=== PATIENT | male | born 1965 | race Caucasian/White ===

== ENCOUNTER → 2017-11-16 14:58 | Outpatient (CLI) | payer SELFPAY ==
--- NOTE | 2017-11-16 15:07 | XR_ITS ---
XR hip LT 2-3V w/pelvis Ordering Physician: Jolie Nguyen Patient Age: 52 years: Male HISTORY: ITS.REASON: LT HIP PAIN Left hip pain 2 months since accident TECHNIQUE: AP and frog-leg view left hip along with AP pelvis COMPARISON :CT abdomen pelvis from 09/12/2017 FINDINGS The left femoral head and neck are intact. The left hip joint spaces well-maintained. Subtrochanteric region unremarkable. There are some small subtle cystic areas at the beneath the lateral rim of the left acetabulum. These are seen on the previous CT and lack reflect some very early degenerative cyst, subchondral cystic changes.. Again the joint space appears to remain fairly well-maintained however. The pelvis appears intact. Superior and inferior pubis intact iliac bone and SI joints intact. Right hip intact with small benign herniation pit. At the right subcapital region. Insignificant IMPRESSION: No fracture. No acute findings. . Hip joint spaces well-maintained bilaterally. Only noteSmall subchondral cystic area beneath the rim of left acetabulum noted.-May reflect some very early degenerative changes left hip
== END ==
PROVIDERS: PCP Nurse Practitioner Family; Visit Provider Nurse Practitioner Family
DX: M25.552 Pain in left hip (principal)
CPT/HCPCS: 73502

== ENCOUNTER → 2017-12-24 14:05 | Outpatient (CLI) | payer SELFPAY ==
--- NOTE | 2017-12-24 14:08 | MR_ITS ---
MR lumbar spine wo con, MR 3-d myelogram/MRCP HISTORY: Bilateral LBP. Tractor Bucket hit back. [id number]. Numbness and tingling in RT leg. Bilateral Leg pain ITS.REASON: LOW BACK PAIN ORDERING PHYSICIAN: Jolie Nguyen PATIENT AGE: 52 years Comparison: None TECHNIQUE: Standard multiplanar multiecho sequences are performed without contrast. 3-D MIP and myelographic images are also rendered and reviewed FINDINGS: There is normal alignment. The spinal cord ends at the L1 level. L1-L2, L2-L3, and L3-L4 have an unremarkable appearance. L4-L5: Concentric bulging disc with some minimal right paracentral disc protrusion. There is mild facet and ligamentum flavum hypertrophy with bilateral lateral recess and foraminal narrowing. The disc is abutting the anteromedial aspect of the L5 nerve roots on both sides slightly greater on the right. L5-S1: Degenerative disc disease which is moderate to severe with bulging disc. There is minimal focal right and left paracentral/foraminal disc protrusion versus small disc osteophyte complex abutting the S1 nerve roots on both sides with moderate severe bilateral foraminal narrowing. There is facet and ligamentum flavum hypertrophy contributing to these findings. No canal stenosis. No extruded herniated disc. There is minimal levocurvature of the lumbar spine. IMPRESSION: 1. Concentric bulging disc at L4-L5 with some minimal right paracentral disc protrusion. There is mild facet and ligamentum flavum hypertrophy with bilateral lateral recess and foraminal narrowing. The disc is abutting the anteromedial aspect of the L5 nerve roots on both sides slightly greater on the right. 2. Moderate to severe Degenerative disc disease at L5-S1 with bulging disc. There is minimal focal right and left paracentral/foraminal disc protrusion versus small disc osteophyte complex abutting the S1 nerve roots on both sides with moderate severe bilateral foraminal narrowing. There is facet and ligamentum flavum hypertrophy contributing to these findings
== END ==
PROVIDERS: Family Provider Internal Medicine; PCP Nurse Practitioner Family; Visit Provider Nurse Practitioner Family
DX: M54.5 Low back pain (principal)
CPT/HCPCS: 72148; 76376

== ENCOUNTER → 2018-07-06 11:17 | Outpatient (CLI) | payer OTHER, SELFPAY ==
--- NOTE | 2018-07-06 11:31 | XR_ITS ---
XR knee RT 3V HISTORY: ITS.REASON: RT KNEE PAIN ORDERING PHYSICIAN: Jolie Nguyen PATIENT AGE: 53 years COMPARISON: None FINDINGS: No fracture or dislocation. No lytic or blastic change. Normal mineralization. No significant arthritic changes evident. No other significant findings IMPRESSION: Negative Knee
--- NOTE | 2018-07-06 11:31 | XR_ITS ---
XR hip RT 2-3V w/pelvis HISTORY: ITS.REASON: RT HIP PAIN ORDERING PHYSICIAN: Jolie Nguyen PATIENT AGE: 53 years COMPARISON: None FINDINGS: No fracture or dislocation is evident. No significant degenerative change. No lytic or blastic change. Unremarkable soft tissues IMPRESSION: Negative hip
== END ==
PROVIDERS: PCP Nurse Practitioner Family; Visit Provider Nurse Practitioner Family
DX: M25.551 Pain in right hip (principal); M25.561 Pain in right knee
CPT/HCPCS: 73502; 73562

== ENCOUNTER → 2018-11-19 08:52 | Outpatient (CLI) | payer OTHER, SELFPAY ==
--- NOTE | 2018-11-19 08:53 | NVE_ITS ---
Venous Exam Indications: 729.81 Swelling of limb. IMPRESSIONS 1. There is no evidence of significant Reflux. 2. No evidence of deep or superficial vein thrombosis involving the right lower extremity Right lower extremity venous duplex evaluation. Doppler flow study including spectral analysis, color and wilkins scale imaging. Location: Vascular laboratory. Patient status: Outpatient. Tables: Venous flow and imaging: + +-------+ + Location Overall Flow properties + +-------+ + Right common femoral Patent Normal phasicity; spontaneous; normal augmentation; compressible + +-------+ + Right saphenofemoral junction Patent Compressible + +-------+ + Right profunda femoral Patent Compressible + +-------+ + Right femoral Patent Normal phasicity; spontaneous; normal augmentation; compressible + +-------+ + Right greater saphenous Patent Normal phasicity; spontaneous; normal augmentation; compressible + +-------+ + Right popliteal Patent Normal phasicity; spontaneous; normal augmentation; compressible + +-------+ + Right posterior tibial Patent Compressible + +-------+ + Right peroneal Patent Compressible + +-------+ + Right gastrocnemius Patent Compressible + +-------+ + Right soleal Patent Compressible + +-------+ + (Report amended ) Electronically signed by: Marquis Zavala [id number]
== END ==
PROVIDERS: PCP Emergency Medicine; Visit Provider Physician Assistant
DX: M79.89 Other specified soft tissue disorders (principal)
CPT/HCPCS: 93971

== ENCOUNTER → 2018-11-30 12:45 | Outpatient (CLI) | payer OTHER, SELFPAY ==
--- NOTE | 2018-11-30 12:47 | MR_ITS ---
MR lumbar spine wo con, MR 3-d myelogram/MRCP HISTORY: PT states low back pain, bilateral leg pain, numbness and tingling. RT leg burning and swelling. PT also states mid back pain. Bilateral hip and groin pain. Prior discectomy in 2003. ITS.REASON: radiculopathy lumbar pain ORDERING PHYSICIAN: EPIFANIO Russell PATIENT AGE: 53 years Comparison: 12-24-17. TECHNIQUE: Standard multiplanar multiecho sequences are performed without contrast. 3-D MIP and myelographic images are also rendered and reviewed FINDINGS: There is normal alignment. The spinal cord ends at the L1 level. Mild degenerative changes at T11-T12. T12-L1, L1-L2, L2-L3, and L3-L4 have an unremarkable appearance. L4-5: There is mild bulging disc with a small central disc protrusion very slightly eccentric toward the right. The bulging disc abuts the anteromedial aspect of both L5 nerve roots. There is mild facet and ligamentum flavum hypertrophy at this level. Not significant change. L5-S1: Degenerative disc disease with bulging disc/disc osteophyte complex along with facet and ligamentum flavum hypertrophy. Minimal focal right paracentral and left paracentral/foraminal disc protrusion versus small disc osteophyte complex once again noted is not appear significantly changed. There is moderate to severe bilateral foraminal narrowing and moderate to severe bilateral lateral recess narrowing. There are type II endplate changes at this level. IMPRESSION: 1. Overall no significant change compared to the previous exam. 2. There is mild bulging disc at L4-5 with a small central disc protrusion very slightly eccentric toward the right. The bulging disc abuts the anteromedial aspect of both L5 nerve roots. There is mild facet and ligamentum flavum hypertrophy at this level. Not significant change.. 3. Degenerative disc disease at L5-S1 with bulging disc/disc osteophyte complex along with facet and ligamentum flavum hypertrophy. Minimal focal right paracentral and left paracentral/foraminal disc protrusion versus small disc osteophyte complex once again noted and does not appear significantly changed. There is moderate to severe bilateral foraminal narrowing and moderate to severe bilateral lateral recess narrowing.
== END ==
PROVIDERS: PCP Physician Assistant; Visit Provider Physician Assistant
DX: M51.16 Intervertebral disc disorders with radiculopathy, lumbar region (principal); M54.16 Radiculopathy, lumbar region
CPT/HCPCS: 72148; 76376

== ENCOUNTER 2019-01-19 09:00 | Outpatient (RCR) | payer OTHER, SELFPAY | END 2019-02-02 11:42 | disposition home or self-care (01) | LOC: PT.CARL 09:00 | PROVIDERS: Visit Provider Neurological Surgery | DX: M25.551 Pain in right hip (principal) | CPT/HCPCS: 97010; 97014; 97110; 97140; 97163; G0283 ==

== ENCOUNTER → 2019-02-03 12:49 | Outpatient (CLI) | payer OTHER, SELFPAY ==
--- NOTE | 2019-02-03 12:52 | MR_ITS ---
PROCEDURE: MR HIP RT WO CON CLINICAL INDICATION: RIGHT HIP PAIN Right hip pain, previous injury with pain and swelling and weakness COMPARISON: HIPCMRT XR hip RT 2-3V w/pelvis from 07/06/2018 TECHNIQUE: Routine multiplanar multi echo sequences are performed without gadolinium enhancement. FINDINGS: There is a small cyst within the junction of the femoral head and neck anteriorly on the right. This measures 8 mm. There is no evidence of avascular necrosis of the femoral head. No evidence of fracture of the femur. There is focal increased T2 signal involving the acetabular roof medially. On the T1 weighted images this has a somewhat linear pattern and is consistent with a subacute fracture. This may be below limits of resolution on the plain film but may be confirmed with CT for better bony detail. No soft tissue mass, muscular tear or abnormal fluid collections are evident. IMPRESSION: Abnormal signal intensity involving the roof of the acetabulum medially suspicious for subacute nondisplaced fracture. Consider CT for confirmation. Dictated by: Marquis Zavala MD 02/05/2019 12:39 Signed by: <Electronically signed by Marquis Zavala MD in [place]> 02/05/2019 12:39
== END ==
PROVIDERS: PCP Physician Assistant; Visit Provider Physician Assistant
DX: M25.551 Pain in right hip (principal)
CPT/HCPCS: 73721

== ENCOUNTER 2019-05-06 09:46 | Observation (INO) ==
--- NOTE | 2019-05-06 09:53 | Emergency Department Note ---
ED Disposition Clinical Impression: Syncope and collapse Fever Qualifiers: Fever type: unspecified Qualified Code(s): R50.9 - Fever, unspecified Disposition: Home, Self-Care Condition on Discharge: Fair Instructions: DI for Syncope in Adults (Fainting) Additional Instructions: Call Dr. Jacinto if temperature greater than 101.5. Tylenol as needed for headache and fever. See Dr. Jacinto in his office next week. Return to the emergency room if fainting recurs. Referrals: Provider,Referral, [Referring] - - Critical Care Critical Care Time: No Attestation: On , the high probability of a clinically significant, sudden or life threatening deterioration of the following system(s) required my full and direct attention, intervention and personal management. The time I documented below is in addition to time spent performing reported procedures but includes the foll owing listed in this critical care notation. Medical Decision Making - Twin Inquiry Pt receiving controlled substance: No Vital Signs: 05/06/19 09:45 05/06/19 11:06 05/06/19 11:48 Temperature 99.6 F 99.8 F H Temperature Source Oral Oral Pulse Rate [Right Radial] 85 76 73 Respiratory Rate 18 Blood Pressure [Right Arm] 146/77 H 132/68 103/44 L Blood Pressure Mean [Right Arm] 100 89 63 Blood Pressure Source [Right Arm] Automatic Cuff Automatic Cuff Automatic Cuff Blood Pressure Position [Right Arm] Sitting Sitting Sitting 02 Sat by Pulse Oximetry 98 97 94 L Oxygen Delivery Method Room Air Room Air Room Air 05/06/19 12:14 05/06/19 12:51 05/06/19 13:36 Temperature Temperature Source Pulse Rate [Right Radial] 79 78 77 Respiratory Rate 18 18 Blood Pressure [Right Arm] 115/59 L 143/73 H 118/77 Blood Pressure Mean [Right Arm] 77 96 90 Blood Pressure Source [Right Arm] Automatic Cuff Automatic Cuff Automatic Cuff Blood Pressure Position [Right Arm] Supine Supine Supine 02 Sat by Pulse Oximetry 96 98 96 Oxygen Delivery Method Room Air Room Air Room Air - Lab Data Lab Results 05/06/19 09:55: WBC 14.0 H, RBC 4.12 L, Hgb 13.3 L, Hct 39.9 L, MCV 96.8 H, MCH 32.3 H, MCHC 33.3, RDW 13.5, Plt Count 259, MPV 8.0, Neut % (Auto) 75.6, Lymph % (Auto) 14.0, [place] % (Auto) 8.4, Eos % (Auto) 1.7, Baso % (Auto) 0.3, Neut # (Auto) 10.6 H, Lymph # (Auto) 2.0, [place] # (Auto) 1.2 H, Eos # (Auto) 0.2, Baso # (Auto) 0.0 05/06/19 09:55: Sodium 134 L, Potassium 3.8, Chloride 101, Carbon Dioxide 27, Anion Gap 9.8, BUN 18, Creatinine 1.05, Estimated Creat Clear 83, Estimated GFR 73, Est GFR ( Amer) 88, Glucose 122 H, Calcium 8.6, Total Bilirubin 0.5, AST 22, ALT 22, Alkaline Phosphatase 84, Troponin I < 0.02, Total Protein 6.8, Albumin 3.4, Globulin 3.4 H, Albumin/Globulin Ratio 1.0 L 05/06/19 09:55: Lactate 1.0 05/06/19 10:16: Urine Color Yellow, Urine Appearance Clear, Urine pH 6.0, Ur Specific [place] 1.010, Urine Protein Negative, Urine Glucose (UA) Negative, Urine Ketones Negative, Urine Blood 1+, Urine Nitrate Negative, Urine Bilirubin Negative, Urine Urobilinogen 0.2, Ur Leukocyte Esterase Negative, Urine RBC 3-5, Urine WBC Occasional, Ur Squamous Epith Cells Occasional, Urine Bacteria Trace 05/06/19 10:16: Influenza Type A Ag Negative, Influenza Type B Ag Negative 05/06/19 13:00: Troponin I < 0.02 Result diagrams: 05/06/19 09:55 05/06/19 09:55 Orders (Tests/Meds): ED MEDICATIONS Discontinued Medications Generic Name Dose Route Start Last Admin Trade Name Freq PRN Reason Stop Dose Admin Acetaminophen 650 mg 05/06/19 10:03 05/06/19 10:21 Acetaminophen 325mg Tab PO 05/06/19 10:04 650 mg ONCE ONE Administration ORDERS Category Date Time Status CRP [C-Reactive Protein] Stat Lab 05/06/19 09:55 Received Erythrocyte Sedimentation Rate Stat Lab 05/06/19 09:55 Received Troponin I Q3H Lab 05/06/19 16:00 Ordered Blood Culture Stat Micro 05/06/19 09:55 Received - Radiology Data #1 Image(s): Chest Image Reviewed: Yes I reviewed the patient's radiology image Preliminary Findings: Normal/NAD - US Data US Images: Lower Extremity (bilat) Findings Narrative: As per [facility] procedure, doppler report received from vascular surgeon: Negative - ECG Data Tracing #1 EKG interpreted by Erasmo Wall MD: Rhythm: sinus Rate: 75 [place]: normal Ectopy: none Conduction: normal ST Segment Changes: none T Wave Changes: none Q Waves: none No evidence of acute ischemia or injury Baseline artifact and wander present, but I consider the EKG adequate for accurate interpretation. - Physician Consults Physician Consulted: Orville Time: 12:00 Reason -: Surgical Eval/Care Comment/Response: Requests bilateral Dopplers of legs to rule out DVT. If negative, discharge home to follow-up in their clinic next week. Call him if temperature greater than 101.5. Additional Consult: Kris Time: 14:10 Reason -: Admission Comment/Response: Agrees to admit the patient to the hospital. We discussed the patient's clinical information, including history, exam, laboratory and radiology results and ED course. Per hospital procedure, I will write temporary bridge inpatient orders on the patient. Specific orders requested by the admitting physician: No antibiotics. IV fluids. Telemetry. - Reevaluation(s) Time: 12:11 Reevaluation #1: Patient states currently just feels weak. Says he has no headache at present. No new complaints. Time: 13:45 Reevaluation #3: Dopplers of legs are negative. Patient however, states that he "just does not feel right". He feels very weak. He keeps nodding off. He has some achiness in the area of his iliac crests bilaterally. Denies any other significant pain. Both he and his daughter did not feel comfortable with him going home. Call will be placed to Dr. Jacinto and I will attempt to get him transferred to [facility]. Medical Decision Narrative: Attempted to transfer to [facility]. They are full and have a waiting list. Discussed with patient and family. They request that I contact PCP to see if he will admit here. I spoke to Dr. Ponce. I spoke with Dr. Jacinto again and he is agreeable with this plan. His cell phone number is [phone] and he can be contacted for consultation. General Adult HPI - General Chief complaint: Syncope Stated complaint: SYNCOPE Time Seen by Provider: 05/06/19 09:46 - History of Present Illness HPI narrative: Brought in by ambulance for syncopal episode. States that he had back surgery, fusion from L5-S1 with rods in his back at [facility] on Thursday, 3 days ago. Last night he says he was up and down all night long starting about 2 AM with sweats and chills. Temperature not taken but he says he was sure he must of had a fever. No Tylenol or ibuprofen taken. Standing at the sink this morning he had a syncopal episode. Became pale and then collapsed, snoring respirations. Has some slight sinus drainage but no sore throat, cough. No abdominal pain, vomiting, diarrhea, or urinary symptoms. No pain at his surgical incision site. Dressing was changed this morning and no signs of infection. He complains of a headache all night that has been coming and going. Family called his surgeon this morning who felt he should be brought to [facility], but the patient preferred to stay local and wanted to be brought here. Primary care provider is Maria Dolores [place]. - Related Data Home Medications Medication Instructions Recorded Confirmed Bisacodyl [Dulcolax 5mg Tablet] 5 mg PO DAILY 05/06/19 05/06/19 Carisoprodol [Soma 350mg tablet] 350 mg PO NEEDED PRN 05/06/19 05/06/19 Lisinopril [Lisinopril 40mg Tablet] 40 mg PO DAILY 05/06/19 05/06/19 Ondansetron HCl [Zofran 4mg Tab*] 4 mg PO TID PRN 05/06/19 05/06/19 Oxycodone HCl/Acetaminophen 1 tab PO NEEDED PRN 05/06/19 05/06/19 [Percocet 7.5/325mg tablet] Tamsulosin HCl 0.4 mg PO DAILY 05/06/19 05/06/19 Allergies Allergy/AdvReac Type Severity Reaction Status Date / Time No Known Allergies Allergy Verified 04/25/19 10:45 [facility] History - Hepatitis A Screen Attestation statement:: This patient has been screened for Hepatitis A risk factors. I have reviewed the patient's past medical history: Yes Medical History: Reports:: Anxiety, Depression, Hyperlipidemia, Hypertension Other Medical History: Reports: Arthritis, Other Comment: enlarged prostate, ddd, Other Surgeries: Yes: Hernia Repair, Other Amputation: No Fractures: No Comment: appenidix, back x2, kidney scopes - Social History Smoking Status: Never smoker Tobacco Type: smokeless tobacco Alcohol Intake: never Substance Use Type: marijuana Occupational Status: unemployed - Psychiatric History Pschychiatric History:: Reports:: Anxiety, Depression Family Hx:: Cancer, Diabetes ROS Obtained: Yes All systems reviewed & no additional complaints - Constitutional Constitutional: Reports chills, Reports fever(s) - ENT Ears, Nose, Mouth, and Throat: Reports nasal discharge, Denies sore throat - Cardiovascular Cardiovascular: Denies chest pain - Respiratory Respiratory: No cough, No dyspnea - Gastrointestinal Gastrointestingal: Denies: abdominal pain, diarrhea, vomiting - Genitourinary Male Genitourinary: Denies difficulty urinating - Neurologic Neurologic: Reports headache(s) Physical Exam - General General appearance: alert, in no apparent distress - Head Head exam: atraumatic, normocephalic - Eye Eye exam: Present: normal appearance, EOMI - ENT ENT exam: Present: mucous membranes moist - Neck Neck exam: Present: normal inspection, full ROM, trachea midline. Absent: meningismus, lymphadenopathy - Chest Chest inspection: Present: normal inspection, symmetric chest wall rise - Respiratory Respiratory exam: Present: normal lung sounds bilaterally. Absent: respiratory distress - Cardiovascular Cardiovascular exam: Present: regular rate, normal rhythm, normal heart sounds - Abdominal Exam Abdominal exam: Present: soft, normal bowel sounds. Absent: distention, tenderness - Extremities Exam Extremities exam: Present: normal inspection, full ROM. Absent: calf tenderness - Back Exam Comment: Lumbar incision with large Band-Aid in place. Incision is nontender and there are no signs of infection. Well approximated. - Neurological Exam Neurological exam: Present: alert, oriented X3, CN II-XII intact. Absent: motor sensory deficit - Psychiatric Psychiatric exam: Present: normal affect, normal mood - Skin Skin exam: Present: warm, dry. Absent: rash
[2019-05-06 10:20] LABS: Basophils % 0.3 % (0.1-2.0); Eosinophils # 0.2 K/mm3 (0.0-0.4); Eosinophils % 1.7 % (0.1-12.0); Hematocrit 39.9 % (42.0-52.0); Hemoglobin 13.3 g/dL (14.1-18.0); Mean Corpuscular HGB Conc 33.3 g/dL (31.8-35.4); Mean Corpuscular Volume 96.8 fl (80-94); Monocytes # 1.2 K/mm3 (0.1-1.0); Monocytes % 8.4 % (1.7-9.3); Neutrophils # 10.6 K/mm3 (1.8-7.8); Neutrophils % 75.6 % (37.0-80.0); Platelet Count 259 K/mm3 (142-424); Red Blood Count 4.12 M/mm3 (4.60-6.20); Red Cell Distribution Width 13.5 % (11.5-17.5)
[2019-05-06 10:24] LABS: Microscopic, Urine URINE MICROSCOPIC (MICROSCOPIC)
[2019-05-06 10:26] LABS: Appearance,Urine CLEAR (Clear); Bilirubin,Urine Negative (Negative); Blood, Urine 1+ (Negative); Color,Urine YELLOW (Yellow); Glucose,Urine (UA) Negative (Negative); Ketones,Urine Negative (Negative); Leukocyte Esterase,Urine Negative (Negative); Protein,Urine Negative (Negative); Urobilinogen,Urine 0.2 EU/dl (0.2)
[2019-05-06 10:36] LABS: Alanine Aminotransferase 22 U/L (12-78); Albumin Level 3.4 gm/dL (3.4-5.0); Alkaline Phosphatase 84 U/L (46-116); Anion Gap 9.8 mEq/L (5-15); Aspartate Amino Transferase 22 U/L (15-37); Bilirubin,Total 0.5 mg/dL (0.2-1.0); Blood Urea Nitrogen 18 mg/dL (7-18); Calcium 8.6 mg/dL (8.5-10.1); Carbon Dioxide 27 mmol/L (21.0-32.0); Chloride 101 mmol/L (98-107); Globulin 3.4 gm/dl (1.3-3.2); Glucose 122 mg/dL (74-106); Sodium 134 mmol/L (136-145); Total Protein,Serum 6.8 gm/dL (6.4-8.2)
[2019-05-06 10:38] LABS: Bacteria,Urine Trace /lpf; Squamous Epithelial Cell,Urine Occasional #/hpf (0-5); WBC,Urine Occasional #/hpf (0-3)
--- NOTE | 2019-05-06 17:31 | Cardiology Report ---
APPROVED REPORT Bilateral Lower Extremity Venous Study for DVT. Skin Carver: MATILDE Indications post-op, fever and syncope Risk Factors Post OP Patient had spinal fusion surgery 05/03/19. He passed out this morning. Vein Imaging CFV (R): compressive, spontaneous, phasic, augmentation FEM (R): compressive, spontaneous, phasic, augmentation POP (R): compressive, spontaneous, phasic, augmentation PTV (R): Compressible GSV (R): compressive, spontaneous, phasic, augmentation SSV (R): Compressible Peroneals (R):Compressible GAS (R): Compressible CFV (L): compressive, spontaneous, phasic, augmentation FEM (L): compressive, spontaneous, phasic, augmentation POP (L): compressive, spontaneous, phasic, augmentation PTV (L): Compressible GSV (L): compressive, spontaneous, phasic, augmentation SSV (L): Compressible Peroneals (L):Compressible GAS (L): Compressible Conclusion No evidence of DVT or superficial thrombophlebitis in the veins scanned of the left lower extremity. No evidence of DVT or superficial thrombophlebitis in the veins scanned of the right lower extremity. Electronically signed by : Marquis Zavala MD 05/06/2019 17:30:45
[2019-05-07 06:32] LABS: Basophils % 0.3 % (0.1-2.0); Eosinophils # 0.4 K/mm3 (0.0-0.4); Eosinophils % 3.2 % (0.1-12.0); Hematocrit 38.2 % (42.0-52.0); Hemoglobin 12.8 g/dL (14.1-18.0); Lymphocytes # 2.4 K/mm3 (0.7-4.5); Lymphocytes % 20.1 % (10-50); Mean Corpuscular HGB Conc 33.5 g/dL (31.8-35.4); Mean Corpuscular Volume 93.5 fl (80-94); Mean Platelet Volume 7.6 fl (7.4-10.4); Monocytes # 0.9 K/mm3 (0.1-1.0); Monocytes % 7.3 % (1.7-9.3); Neutrophils # 8.3 K/mm3 (1.8-7.8); Neutrophils % 69.2 % (37.0-80.0); Platelet Count 256 K/mm3 (142-424); Red Blood Count 4.09 M/mm3 (4.60-6.20); Red Cell Distribution Width 12.6 % (11.5-17.5)
[2019-05-07 06:37] LABS: Anion Gap 11.2 mEq/L (5-15); Calcium 8.6 mg/dL (8.5-10.1)
--- NOTE | 2019-05-07 08:33 | Pharmacy Consult Notes ---
[facility] Pharmacy VTE Monitoring - Patient Demographics Admission date: 05/06/19 Report Date: 05/07/19 Time: 08:33 Allergies/Adverse Reactions: Patient Allergies No Known Allergies Allergy (Verified 04/25/19 10:45) Height: 1.73 m Weight: 72.802 kg Patient Problems: Current Active Problems Syncope and collapse (Acute) Fever (Acute) - VTE Risk Labs: VTE Related Lab Results Hgb 12.8 g/dL (14.1-18.0) L 05/07/19 06:11 Hct 38.2 % (42.0-52.0) L 05/07/19 06:11 Plt Count 256 K/mm3 (142-424) 05/07/19 06:11 BUN 12 mg/dL (7-18) D 05/07/19 06:11 Creatinine 0.83 mg/dL (0.70-1.30) D 05/07/19 06:11 Estimated Creat Clear 102 mL/min (50-200) 05/07/19 06:11 Was VTE Risk Assessment Performed: Yes VTE Score: 2 VTE Risk Level: Very Low Risk - Prophylaxis VTE Prophylaxis Ordered?: Yes Types of VTE Prophylaxis: TEDS Knee High Location of Applied Device: Bilateral Lower Extremeties - VTE Diagnosis Confirmed Treatment or plan recommended: Continue Current Treatment
--- NOTE | 2019-05-07 09:27 | History & Physical Report ---
*Admission Date: 05/06/19 *Chief complaint: syncope *History of present illness: this wm presented to the ed with acute syncopal episode -pt has lumbar spine surg on thursday and released on at [facility] - he had did ok but felt weak and flushed w/o cough and no chest pain or palpitation - he continued to have sx despite using po food and fluids - ought in by ambulance for syncopal episode. States that he had back surgery, fusion from L5-S1 with rods in his back at [facility] on Thursday, 3 days ago. Last night he says he was up and down all night long starting about 2 AM with sweats and chills. Temperature not taken but he says he was sure he must of had a fever. No Tylenol or ibuprofen taken. Standing at the sink this morning he had a syncopal episode. Became pale and then collapsed, snoring respirations. Has some slight sinus drainage but no sore throat, cough. No abdominal pain, vomiting, diarrhea, or urinary symptoms. No pain at his surgical incision site. Dressing was changed this morning and no signs of infection. He complains of a headache all night that has been coming and going. Family called his surgeon this morning who felt he should be brought to [facility], but the patient preferred to stay local and wanted to be brought here. pt was admitted for [facility] - [facility] History I have reviewed the patient's past medical history: Yes Medical History: Reports:: Anxiety, Depression, Hyperlipidemia, Hypertension Denies:: Diabetes Mellitus Type 1, Diabetes Mellitus Type 2 *Have you ever received a pneumonia vaccine?: No *Have you received a flu vaccine this season?: Yes Other Medical History: Reports: Arthritis, Other Other Surgeries: Yes: Hernia Repair, Other Amputation: No Fractures: No - *Social History Educational Level: Completed High School Smoking Status: Never smoker Tobacco Type: smokeless tobacco Alcohol Intake: never Substance Use Type: marijuana *Occupational Status:: unemployed Housing: house Household Members: none *Travel in the last 8 weeks: None - Psychiatric History Pschychiatric History:: Reports:: Anxiety, Depression Family Hx:: Cancer, Diabetes Review of Systems - Review of Systems Review of systems:: pertinent systems reviewed and negative unless documented below - Constitutional Reports weakness, Denies fever(s) - Eyes Denies change in vision - ENT Reports dizziness - *Cardiovascular Reports fainting, Denies chest pain - *Respiratory Denies cough - *Gastrointestinal Reports nausea, Denies abdominal pain - *Genitourinary Denies blood in urine - *Musculoskeletal Denies joint pain, Denies joint swelling - Integumentary/Breasts Denies rash - *Neurologic Reports headache(s), Denies localized weakness, Denies seizure-like activity - Psychiatric Denies anxiety, Denies confusion Meds Home Medications Medication Instructions Recorded Confirmed Type Atorvastatin Calcium [Atorvastatin 80 mg PO HS 05/06/19 05/06/19 History 80mg Tab] Bisacodyl [Dulcolax 5mg Tablet] 5 mg PO DAILY 05/06/19 05/06/19 History Cyclobenzaprine HCl 10 mg PO BID 05/06/19 05/06/19 History [Cyclobenzaprine 10mg Tab] Lisinopril [Lisinopril 40mg Tablet] 40 mg PO DAILY 05/06/19 05/06/19 History Ondansetron HCl [Zofran 4mg Tab*] 4 mg PO TID PRN 05/06/19 05/06/19 History Pregabalin [Lyrica 75mg Cap] 75 mg PO TID 05/06/19 05/06/19 History Tamsulosin HCl 0.4 mg PO DAILY 05/06/19 05/06/19 History Allergies Allergy/AdvReac Type Severity Reaction Status Date / Time No Known Allergies Allergy Verified 04/25/19 10:45 Exam Vital signs and Labs for Last 24 Hours: Temp Pulse Resp BP Pulse Ox 97.8 F 63 18 146/87 H 97 05/07/19 07:28 05/07/19 07:28 05/07/19 07:28 05/07/19 07:28 05/07/19 07:28 Laboratory Results - last 24 hr 05/06/19 09:55: WBC 14.0 H, RBC 4.12 L, Hgb 13.3 L, Hct 39.9 L, MCV 96.8 H, MCH 32.3 H, MCHC 33.3, RDW 13.5, Plt Count 259, MPV 8.0, Neut % (Auto) 75.6, Lymph % (Auto) 14.0, Morris % (Auto) 8.4, Eos % (Auto) 1.7, Baso % (Auto) 0.3, Neut # (Auto) 10.6 H, Lymph # (Auto) 2.0, Morris # (Auto) 1.2 H, Eos # (Auto) 0.2, Baso # (Auto) 0.0 05/06/19 09:55: Sodium 134 L, Potassium 3.8, Chloride 101, Carbon Dioxide 27, Anion Gap 9.8, BUN 18, Creatinine 1.05, Estimated Creat Clear 83, Estimated GFR 73, Est GFR ( Amer) 88, Glucose 122 H, Calcium 8.6, Total Bilirubin 0.5, AST 22, ALT 22, Alkaline Phosphatase 84, Troponin I < 0.02, Total Protein 6.8, Albumin 3.4, Globulin 3.4 H, Albumin/Globulin Ratio 1.0 L 05/06/19 09:55: Lactate 1.0 05/06/19 09:55: ESR 17 05/06/19 09:55: C-Reactive Protein 3.4 H 05/06/19 10:16: Urine Color Yellow, Urine Appearance Clear, Urine pH 6.0, Ur Specific [place]by 1.010, Urine Protein Negative, Urine Glucose (UA) Negative, Urine Ketones Negative, Urine Blood 1+, Urine Nitrate Negative, Urine Bilirubin Negative, Urine Urobilinogen 0.2, Ur Leukocyte Esterase Negative, Urine RBC 3-5, Urine WBC Occasional, Ur Squamous Epith Cells Occasional, Urine Bacteria Trace 05/06/19 10:16: Influenza Type A Ag Negative, Influenza Type B Ag Negative 05/06/19 13:00: Troponin I < 0.02 05/06/19 15:45: Troponin I < 0.02 05/07/19 06:11: WBC 12.0 H, RBC 4.09 L, Hgb 12.8 L, Hct 38.2 L, MCV 93.5, MCH 31 .4 H, MCHC 33.5, RDW 12.6, Plt Count 256, MPV 7.6, Neut % (Auto) 69.2, Lymph % (Auto) 20.1, Morris % (Auto) 7.3, Eos % (Auto) 3.2, Baso % (Auto) 0.3, Neut # (Auto) 8.3 H, Lymph # (Auto) 2.4, Morris # (Auto) 0.9, Eos # (Auto) 0.4, Baso # (Auto) 0.0 05/07/19 06:11: Sodium 138, Potassium 4.2, Chloride 105, Carbon Dioxide 26, Anion Gap 11.2, BUN 12 D, Creatinine 0.83 D, Estimated Creat Clear 102, Estimated GFR 96, Est GFR ( Amer) 116 D, Glucose 133 H, Calcium 8.6 I & O for Last 24 hours: Intake & Output 05/04/19 05/05/19 05/06/19 05/07/19 11:59 11:59 11:59 11:59 Intake Total 1779 Balance 1779 Weight 165 lb 160 lb 8 oz - Constitutional no acute distress - *Routine HEENT Exam Head: Present: normocephalic Eye: Present: EOMI, PERRL ENT: Present: mucous membranes dry - *Routine Neck Exam Present: supple - *Routine Respiratory Exam Present: CTA bilaterally - *Routine Cardiovascular Exam Present: RRR, murmur - *Routine Abdominal Exam Present: soft - *Routine Extremities Exam Present: full ROM. Absent: calf tenderness - *Routine Skin Exam Comments: surgical site clear - *Routine Neurological Exam Present: alert, oriented X3, CN II-XII intact. Absent: motor deficit - Routine Psychiatric Exam Present: normal affect Assessment and Plan (1) History of lumbosacral spine surgery Current visit: Yes Status: Acute Category: Surgical Code(s): Z98.890 - Other specified postprocedural states (2) Syncope and collapse Current visit: Yes Status: Acute Category: Medical Code(s): R55 - Syncope and collapse
--- NOTE | 2019-05-08 09:43 | Discharge Summary ---
General - General Admission date:: 05/06/19 Discharge date: 05/08/19 HPI HPI: this wm presented to the ed with acute syncopal episode -pt has lumbar spine surg on thursday and released on at [facility] - he had did ok but felt weak and flushed w/o cough and no chest pain or palpitation - he continued to have sx despite using po food and fluids - ought in by ambulance for syncopal episode. States that he had back surgery, fusion from L5-S1 with rods in his back at [facility] on Thursday, 3 days ago. Last night he says he was up and down all night long starting about 2 AM with sweats and chills. Temperature not taken but he says he was sure he must of had a fever. No Tylenol or ibuprofen taken. Standing at the sink this morning he had a syncopal episode. Became pale and then collapsed, snoring respirations. Has some slight sinus drainage but no sore throat, cough. No abdominal pain, vomiting, diarrhea, or urinary symptoms. No pain at his surgical incision site. Dressing was changed this morning and no signs of infection. He complains of a headache all night that has been coming and going. Family called his surgeon this morning who felt he should be brought to [facility], but the patient preferred to stay local and wanted to be brought here. pt was admitted for ivf - Hospital Course Hospital Course: pt has slowly improved and maintained vital signs - he has c diff on diarrhea panel and has been started on treatment - no previous dx of c diff- pt is tolerating diet and activity and will d/c on flagyl and given instructions regarding c dif- Objective Vital signs: Temp Pulse Resp BP Pulse Ox 97.6 F 63 18 110/56 L 99 05/08/19 07:37 05/08/19 07:37 05/08/19 07:37 05/08/19 07:37 05/08/19 07:37 no acute distress, average body habitus - *Routine HEENT Exam Head: Present: normocephalic Eye: Present: EOMI, PERRL. Absent: conjunctival icterus ENT: Present: mucous membranes moist - *Routine Neck Exam Absent: JVD - *Routine Respiratory Exam Present: CTA bilaterally - *Routine Cardiovascular Exam Present: RRR - *Routine Abdominal Exam Present: soft - *Routine Extremities Exam Present: full ROM - Routine Back/Spine/Pelvis Exam Comments: s/p lumbar surg - *Routine Skin Exam Present: intact - *Routine Neurological Exam Present: alert, oriented X3, CN II-XII intact - Routine Psychiatric Exam Present: normal affect Results Labs on day of discharge: Labs from last 24 hours 05/07/19 11:55 Stl Aeromonas (PCR) Not detected Stl C. cayetanensis PCR Not detected Stool Rotavirus (PCR) Not detected Stl Adenov F 40/41 PCR Not detected Stool Astrovirus (PCR) Not detected Stool Campylobacter PCR Not detected Stl C.difficile Tox PCR Detected A Stool Cryptosporidium PCR Not detected Stl E.coli Shiga Tox PCR Not detected Stool E coli O157 PCR Not detected Stl Enterotoxigenic E PCR Not detected Stool EPEC (PCR) Not detected Stool EAEC (PCR) Not detected Stl E. histolytica PCR Not detected Stool Giardia Lamblia PCR Not detected Stool Salmonella PCR Not detected Stool Sapovirus (PCR) Not detected Stl P. shigelloides PCR Not detected Stl Shigella/EIEC PCR Not detected St Y.enterocolitica PCR Not detected Stool Vibrio (PCR) Not detected Stl Vibrio cholerae PCR Not detected Stl Norovirus GI/GII PCR Not detected DS: Diagnosis - Discharge Diagnosis (1) History of lumbosacral spine surgery Status: Acute (2) Syncope and collapse Status: Acute (3) C. difficile enteritis Status: Acute (4) Hyperlipidemia Status: Acute (5) Hypertension Status: Chronic Discharge Plan - Patient Discharge Instructions ACTIVITY: Continue current activity DIET: continue same diet Patient Instructions: DI for Syncope in Adults (Fainting), DI for Fever (Symptom) -- Adult, Clostridium difficile Infection - Follow up Plan Follow up with: Abbe Ponce MD [Staff Physician] - Disposition: Home, Self-Shelter Medications: Home Medications Medication Instructions Recorded Confirmed Type Atorvastatin Calcium [Atorvastatin 80 mg PO HS 05/06/19 05/06/19 History 80mg Tab] Bisacodyl [Dulcolax 5mg Tablet] 5 mg PO DAILY 05/06/19 05/06/19 History Cyclobenzaprine HCl 10 mg PO BIDP PRN 05/06/19 05/07/19 History [Cyclobenzaprine 10mg Tab] Lisinopril [Lisinopril 40mg Tablet] 40 mg PO DAILY 05/06/19 05/06/19 History Ondansetron HCl [Zofran 4mg Tab*] 4 mg PO TIDP PRN 05/06/19 05/07/19 History Pregabalin [Lyrica 75mg Cap] 75 mg PO TID 05/06/19 05/06/19 History Tamsulosin HCl 0.4 mg PO DAILY 05/06/19 05/06/19 History metroNIDAZOLE [Flagyl 500mg 500 mg PO TID #30 tab 05/08/19 Rx Tablet] Prescriptions/Medication Reconciliation: New metroNIDAZOLE [Flagyl 500mg Tablet] 500 mg PO TID #30 tab Continued Ondansetron HCl [Zofran 4mg Tab*] 4 mg PO TIDP PRN PRN Reason: Nausea Tamsulosin HCl 0.4 mg PO DAILY Lisinopril [Lisinopril 40mg Tablet] 40 mg PO DAILY Atorvastatin Calcium [Atorvastatin 80mg Tab] 80 mg PO HS Pregabalin [Lyrica 75mg Cap] 75 mg PO TID Cyclobenzaprine HCl [Cyclobenzaprine 10mg Tab] 10 mg PO BIDP PRN PRN Reason: MUSCLE SPASMS Discontinued Bisacodyl [Dulcolax 5mg Tablet] 5 mg PO DAILY - Problem Reconciliation Problems Reviewed?: Yes
--- OUTSIDE RECORDS SUMMARY | 2019-05-09 15:26 | External Medical Summary | Continuity of Care Document ---
:1965 Author Organization [facility] Address [address] [address] Eas t [employer] [address] Phone Care Team Providers Name Role Phone Daisy Attending Provider Patrick Nagel Primary Care Provider Patrick Nagel Attending Provider Edward Ponce Attending Provider Allergies, Adverse Reactions, Alerts No known allergies. Medications Medication Status Dose Units Route Sig Qty Days Start End Instruct ions Date Date Ondansetron Hcl Active 4 MG Oral Three April times a , as 2019 needed 9:56am Tamsulosin Hcl Active 0.4 MG Oral Daily May 06, 2019 9:56am Lisinopril Active 40 MG Oral Daily May 06, 2019 10:00am Atorvastatin Active 80 MG Oral At April bedtime , nightly 2018 4:19pm Pregabalin Active 75 MG Oral Three April times 2018 4:19pm Cyclobenzaprine Active 10 MG Oral Twice a April Hcl day as 2018 4:37pm Metronidazole Active 500 MG Oral Three 14 May times 2018 9:47am Problems Active Problems Medical Problem Onset Date Status C. difficile enteritis Active History of lumbosacral spine surgery Act juliet Low Back Pain Active Fever Active Abdominal trauma Active Hyperlipidemia Active Syncope and collapse Active Crush injury Active Lumbar transverse process fracture Activ e Elevated lactic acid level Active Hypertension Active Procedures Procedure Date Performed Status XR chest 2V May 06, [address] head/brain wo con May 06, 2019 completed ECG initial Lui May 06, 2019 completed Blood Culture May 06, 2019 active Relevant Diagnostic Tests and/or Laboratory Data Laboratory Results Test Date/Time Result Interpretation Reference Result Perfo rming Range Comment Site White Blood April 12.0 K/mm3 4.8-10.8 [facility], [address] [place] [address] 36 E Count 2018 Brennon LUIS 01941 6:11am Red Blood April 4.09 M/mm3 4.60-6.20 [facility], [address] [place] [address] E Count 2018 Brennon LUIS 74734 6:11am Hemoglobin April 12.8 g/dL 14.1-18.[address] 36 E 2018 Brennon Prescott31 6:11am Hematocrit April 38.2 % 42.0-52.[address] 36 E 2018 Brennon LUIS 50968 6:11am Mean April 93.5 fl 80-94 [facility], [address] [place] [address] E Corpuscular 2018 Kina LUIS 82434 Volume 6:11am Mean April 31.4 pg 27.0-31.2 [facility], [address] [place] [address] 36 E Corpuscular 2018 Kina LUIS 09753 Hemoglobin 6:11am Mean April 33.5 g/dL 31.8-35.4 [facility], [address] [place] [address] 36 E Corpuscular 2018 Kina LUIS 92593 Hemoglobin 6:11am Concent Red Cell April 12.6 % 11.5-17.5 [facility], [address] [place] [address] 36 E Distribution 2018 Maddie LUIS 74489 Width 6:11am Platelet April 256 K/mm3 142-424 [facility], [address] [place] [address] 36 E Count 2018 Brennon LUIS 31038 6:11am Mean Platelet April 7.6 fl 7.4-10.4 [facility], [address] [place] [address] 36 E Volume 2018 Brennon Prescott31 6:11am Neutrophils April 69.2 % 37.0-80.0 [facility], [address] [place] [address] 36 E (%) (Auto) 2018 Damian Prescott31 6:11am Lymphocytes April 20.1 % 10-50 [facility], [address] [place] [address] E (%) (Auto) 2018 Damian Prescott31 6:11am Monocytes (%) April 7.3 % 1.7-9.3 [facility], [address] [place] [address] E (Auto) 2018 Brennon Prescott31 6:11am Eosinophils April 3.2 % 0.1-12.0 [facility], [address] [place] [address] E (%) (Auto) 2018 Damian Prescott31 6:11am Basophils (%) April 0.3 % 0.1-2.0 [facility], [address] [place] [address] E (Auto) 2018 Brennon LUIS 83000 6:11am Neutrophils # April 8.3 K/mm3 1.8-7.8 [facility], [address] [place] [address] E (Auto) 2018 Brennon LUIS 01598 6:11am Lymphocytes # April 2.4 K/mm3 0.7-4.5 [facility], [address] [place] [address] E (Auto) 2018 Brennon LUIS 28040 6:11am Monocytes # April 0.9 K/mm3 0.1-1.0 [facility], [address] [place] [address] E (Auto) 2018 Brennon LUIS 86640 6:11am Eosinophils # April 0.4 K/mm3 0.0-0.4 [facility], [address] [place] [address] E (Auto) 2018 Brennon LUIS 86465 6:11am Basophils # April 0.0 K/mm3 0-0.2 [facility], [address] [place] [address] E (Auto) 2018 Brennon LUIS 06300 6:11am Erythrocyte April 17 mm/hr 0-[address] 36 E Sedimentation 2018 Deejay LUIS 80870 Rate 9:55am Urine Color November Yellow Yellow [facility], [address] [place] [address] 36 E 2018 Brennon LUIS 43280 10:16am Urine November Clear Clear [facility], [address] [place] [address] 36 E Appearance 2018 Damian LUIS 13889 10:16am Urine pH November 6.0 5.0-8.5 [facility], [address] [place] [address] 36 E 2018 Brennon Prescott31 10:16am Urine November 1.010 1.005-1.030 [facility], [address] [place] [address] 36 E Specific 2018 Brennon Prescott31 [employer] 10:16am Urine Protein November Negative Negative [facility], [address] [place] [address] 36 E 2018 Brennon Abreu 10:16am Urine Glucose November Negative Negative [facility], [address] [place] [address] 36 E (UA) 2018 Brennon Abreu 10:16am Urine Ketones November Negative Negative [facility], [address] [place] [address] 36 E 2018 Brennon Abreu 10:16am Urine Blood November 1+ Negative [facility], [address] [place] [address] 36 E 2018 Brennon Prescott31 10:16am Urine Nitrate November Negative Negative [facility], [address] [place] [address] 36 E 2018 Brennon Prescott31 10:16am Urine November Negative Negative [facility], [address] [place] [address] 36 E Bilirubin 2018 Brennon Abreu 10:16am Urine November 0.2 EU/dl [facility], [address] [place] [address] 36 E Urobilinogen 2018 Maddie Abreu 10:16am Urine November Negative Negative [facility], [address] [place] [address] 36 E Leukocyte 2018 Brennon Abreu Esterase 10:16am Urine RBC April 3-5 #/hpf [facility], [address] [place] [address] 36 E 2018 Brennon Prescott31 10:16am Urine WBC November Occasional [facility], [address] [place] [address] 36 E 2018 #/hpf Brennon Abreu 10:16am Urine November Occasional [facility], [address] [place] [address] 36 E Squamous 2018 #/hpf Brennon Abreu Epithelial 10:16am Cells Urine April Trace /lpf NONE [facility], [address] [place] [address] 36 E Bacteria 2018 Brennon LUIS 58031 10:16am Troponin I April < 0.02 0.00-0.06 *ALERT* [facility], [address] [place] [address] 36 E 2018 ng/ml levels of Brennon Abreu 3:45pm Biotin can falsely depress Troponin results.Many dietary supplements promoted for hair,skin, and nail benefits contain biotin levels up to 650 times the recommended daily intake of biotin. In additon to dietary supplements, Biotin is occasionally prescribed for medical conditions. Sodium Level April 138 mmol/L 136-145 [facility], [address] [place] [address] 36 E 2018 Brennon LUIS 27258 6:11am Potassium April 4.2 mmoL/L 3.5-5.1 [facility], [address] [place] [address] E Level 2018 Brennon LUIS 67060 6:11am Chloride April 105 mmol/L 98-107 [facility], [address] [place] [address] E Level 2018 Brennon LUIS 81782 6:11am Carbon April 26 mmol/L 21.0-32.0 [facility], [address] [place] [address] E Dioxide Level 2018 Deejay LUIS 96062 6:11am Anion Gap April 11.2 mEq/L 5-[address] [address] E 2018 Brennon LUIS 43135 6:11am Blood Urea April 12 mg/dL 7-18 Delta: 18 on [facility], [address] [place] [address] E Nitrogen 201805/06/19 Deejay LUIS 40129 6:11am Creatinine April 0.83 mg/dL 0.70-1.30 Delta: 1.05 [facility], [address] [place] [address] 36 E 2018 on Brennon LUIS 76752 6:11am 05/06/19 Estimated April 102 mL/min 0-[address] [address] E Creatinine 2018 Damian LUIS 27694 Clearance 6:11am Estimated GFR April 116 ML/MIN >59 Delta: 88 on [facility], [address] [place] [address] 36 E ( 201805/06/19-954 Deejay LUIS [address]53 Congolese) 6:11am Estimat April 96 ml/min >59 [facility], [address] [place] [address] 36 E Glomerular 2018 Damian LUIS 26941 Filtration 6:11am Rate Glucose Level April 133 mg/dL 74-106 [facility], [address] [place] [address] 36 E 2018 [place] [address] 6:11am Bedside April 108 70-110 Point-of-C a Glucose 2018 re (RALS) 9:38am Lactate April 1.0 mmol/L 0.4-2.0 [facility], [address] [place] [address] 36 E 2018 Brennon JANELLE 47924 9:55am Calcium Level April 8.6 mg/dL 8.5-10.1 [facility], [address] [place] [address] 36 E 2018 [place] JANELLE [address] 6:11am Total November 0.5 mg/dL 0.2-1.0 [facility], [address] [place] [address] 36 E Bilirubin 2018 Brennon JANELLE 67439 9:55am Aspartate April 22 U/L 15-37 [facility], [address] [place] [address] 36 E Amino Transf 2018 Maddie green JANELLE 89453 (AST/SGOT) 9:55am Alanine April 22 U/L 12-78 [facility], [address] [place] [address] 36 E Aminotransfer 2018 Deejay acostana JANELLE [address] ase 9:55am (ALT/SGPT) C-Reactive April 3.4 mg/dL 0.0-0.9 [facility], [address] [place] [address] 36 E Protein 2018 Brennon JANELLE 91729 9:55am Total Protein April 6.8 gm/dL 6.4-8.2 [facility], [address] [place] [address] 36 E 2018 Brennon JANELLE 19642 9:55am Albumin April 3.4 gm/dL 3.4-5.0 [facility], [address] [place] [address] 36 E 2018 [place] [address] 9:55am Globulin November 3.4 gm/dl 1.3-3.2 [facility], [address] [place] [address] E 2018 [place] [address] 9:55am Albumin/Globu November 1.0 1.1-1.8 [facility], [address] [place] [address] 36 E martha Ratio 2018 [place] [address] 9:55am Alkaline November 84 U/L 46-116 [facility], [address] [place] [address] E Phosphatase 2018 [place] [address] 9:55am Influenza November Negative Negative [facility], [address] [place] [address] E Type A 2018 [place] [address] Antigen 10:16am Influenza November Negative Negative [facility], [address] [place] [address] E Type B 2018 [place] [address] Antigen 10:16am Stool November Not NotDetected [facility], [address] [place] [address] 36 E Aeromonas 2018 [place] [address] (PCR) 11:55am Stool November Not NotDetected [facility], [address] [place] [address] E Campylobacter 2018 [place] [address] PCR 11:55am Stool C. November Detected NotDetected [facility], [address] [place] [address] E difficile 2018 [place] [address] Toxin (PCR) 11:55am RESULT Result s called to: VINNY on 05/07/19 at 1452By Chanel Gt Stool November Not NotDetected [facility], [address] [place] [address] 36 E Plesiomonas 2018 [place] [address] shigelloides 11:55am PCR Stool November Not NotDetected [facility], [address] [place] [address] 36 E Salmonella 2018 [place] [address] PCR 11:55am Stool November Not NotDetected [facility], [address] [place] [address] 36 E Yersinia 2018 [place] [address] enterocolitic 11:55am a (PCR) Stool Vibrio November Not NotDetected [facility], [address] [place] [facility] 36 E (PCR) 2018 [place] [address] 11:55am Stool Vibrio November Not NotDetected [facility], [address] [place] [facility] 36 E cholerae 2018 [place] [address] (PCR) 11:55am Stool November Not NotDetected [facility], [address] [facility] 36 E Enteroaggrega 2018 [place] [address] tive E. coli 11:55am PCR Stool November Not NotDetected [facility], [address] [facility] 36 E Enteropathoge 2018 [place] [address] lina E. coli 11:55am (PCR Stool November Not NotDetected [facility], [address] [place] [address] 36 E Enterotoxigen 2018 [place] [address] ic Ecoli PCR 11:55am Stool E. coli November Not NotDetected [facility], [address] [facility] 36 E Shiga Toxins 2018 [place] [address] (PCR) 11:55am Stool E coli November Not NotDetected [facility], [address] [place] [facility] 36 E O157 PCR 2018 [place] [address] 11:55am Stool November Not NotDetected [facility], [facility] 36 E Shigella/EIEC 2018 [place] [address] (PCR) 11:55am Stool November Not NotDetected [facility], [facility] 36 E Cryptosporidi 2018 [place] [address] um PCR 11:55am Stool November Not NotDetected [facility], [address] [facility] 36 E Cyclospora 2018 [place] [address] cayetanensis 11:55am (PCR) Stool November Not NotDetected [facility], [address] [facility] 36 E Entamoeba 2018 [place] [address] histolytica 11:55am (PCR) Stool Giardia November Not NotDetected [facility], [address] [facility] 36 E Lamblia PCR 2018 [place] [address] 11:55am Stool November Not NotDetected [facility], [address] Adenovirus F 2018 [place] [address] 40/41 (PCR) 11:55am Stool November Not NotDetected [facility], [address] Astrovirus 2018 [place] [address] (PCR) 11:55am Stool November Not NotDetected [facility], [address] [place] [address] Norovirus 2018 [place] [address] GI/GII PCR 11:55am Stool November Not NotDetected [facility], [address] [place] [address] Rotavirus 2018 [place] [address] (PCR) 11:55am Stool November Not NotDetected [facility], [address] Sapovirus 2018 [place] [address] (PCR) 11:55am Diagnostic Imaging Reports Report Dictated Date/Time Dictated By Status Radiology Report May 06, 2019 Miguel Green completed 10:12am [facility] [address] [place] [address] XRay R eport Sig etressa Patient: Abbe Barr MR#: [id number] : 1965 Acct:[id number] Age/Sex: 54 / M ADM Date: 9 Loc: ER Attending Dr: Ordering Physician: Erasmo Wall MD Date of Service: 05/06/19 Procedure(s): XR chest 2V Accession Number(s): [id number] cc: Miguel Green ; Maria Dolores Nagel~ PROCEDURE: XR CHEST 2V CLINICAL HISTORY: fever, syncope COMPARISON: No exams were available fo r comparison FINDINGS: The cardiomediastinal silhouette and pu lmonary vascularity are within normal limits. The lungs are clear without infiltrates , suspicious nodules, or pleural effusions. No acute bony abnormalities. IMPRESSION: No acute findings. Dictated by: Dr. Chilo Green MD 2018 10:[address] Jessika Green MD in [place] 05/06/2019 10:31 Radiology Report May 06, 2019 Marquis Zavala MD completed 10:38am [facility] [address] [place] [facility] 36 E [place] [address] [address] Scan Report Sig teressa Patient: Abbe Barr MR#: [id number] : 1965 Acct:[id number] Age/Sex: 54 / M ADM Date: 9 Loc: ER Attending Dr: Ordering Physician: Erasmo Wall MD Date of Service: 05/06/19 Procedure(s): CT head/brain wo con Accession Number(s): [id number] cc: Marquis Zavala MD; Maria Dolores Nagel PA~ PROCEDURE: CT HEAD/BRAIN WO CON CLINICAL INDICATION: headache, syncope Headache and syncope COMPARISON: HDWO CT HEAD W/O CONTRAST from 11/25/2013 TECHNIQUE: Axial images obtained. All CT scans at the facility use one or more dose reduction, viz: automa justin exposure control, ma/kV adjustment per patient size (including targeted exams where dose is matched to indication, i.e. head), or i terative reconstruction technique. FINDINGS: No midline shift, mass effect, intracra nial hemorrhage, hydrocephalus, or extra-axial fluid col lection is evident. There is a mild degree of motion artifact limiting fine detail insert areas specially skull base. The calvarium wayne s an unremarkable appearance. No mastoid effusion. There is mild muc osal thickening of the ethmoid maxillary sinus. IMPRESSION: No acute intracranial finding Dictated by: Marquis Zavala MD 05/06/2019 11:33 Electronically signed by Marquis Zavala in [place] 05/06/2019 11:33 Health Concerns Concerns syncope Advance Directives Advance Directive Response Recorded Date/Time Living Will No May 06, 2019 2:31pm Does the patient have an No April 25, 2019 11:58am advanced directive on file? Living Will No April 25, 2019 11:58am Does the patient have an No March 29 019 4:17pm advanced directive on file? Living Will No March 29, 2019 4 :17pm Chief Complaint and Reason for Visit Chief Complaint follow up meds and flu shot Sick visit (adolescent/adult ) SYNCOPE Reason for Visit C. 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 difficile enteritis Fever History of lumbosacral spine surgery Hyperlipidemia Syncope and collapse Assessments See care plan goals Functional Status Observation Response Date Recorded Oral Care Ability Independent May 06, 2019 2:31pm Bathing Ability Independent May 06, 2019 2:31pm Eating (Feeding) Ability Independent May 06, 2019 2:31pm Toileting Ability Independent May 06, 2019 2:31pm Ambulation Ability Independent May 08, 2019 10:11am Functional status ambulatory April 25, 2019 11:58am Functional status ambulatory March 29, 2019 4 :17pm Goals Acute Goals Nursing Diagnosis: Knowledge Deficit D isease/Condition Goal(s): Education of di sease process Instruction(s): Follow provider p bryson/instructions (See attached discharge education) Follow/up with primary care provider as instructed in discharge packet Ambulatory Goals Patient & Family verbalize understanding of healthy behaviors. Patient & Family to follow preventative plan of care. Education provided. Immunizations Immunization Event Date Not Given Dose Assessment Technician Lot Vac cine Reason Number Number Informatio n Statement (VIS) Deta il Quadrivalent March [id number] Influenza 2018 Mental Status Observation Response Date Recorded Comprehension Ability No Impairment May 08 9 8:48am Able to Read Yes May 06, 2019 2:31pm Able to Write Yes May 06, 2019 2:31pm Ability to Follow Directions Excellent May 062018 2:31pm Eye Contact Direct Eye Contact May 06, 2019 2:31pm Oral Expression Ability No Impairment May 06 019 2:31pm Medical Equipment No Medical Equipment Information available Insurance Providers Guarantor Abbe Barr Address [address] [place] [address] [place] LUIS [id number] Contact Info. Home Phone: Payer Policy Id Coverage Id Subscriber's Subscriber Effective Expi ration Name Id Date Date [employer] [id number] Abbe [id number] Marlena Barr Self Pay Self N/A Plan of Treatment Follow up as ordered by PCP follow up with ortho Future Tests Future scheduled test information is unavailable Pending Tests Pending diagnostic test information is unavailable Future Visits Future appointment information is unavailable Referrals to Other Providers Reason for Referral Start Provider Provider Contact Provider Address Referral Date Information Admission to [facility] May 092018 [facility] Future Procedures Future procedure information is unavailable Future Medications Future medication information is unavailable Patient Instructions Essential Hypertension Sinusitis Balanced Diet DI for Syncope in Adults (Fainting) DI for Fever (Symptom) -- Adult Clostridium difficile Infection Social History Assigned Sex Male Vital Signs Vital Reading Result Reference Range Collection Date/ Time Height 172.72 cm March 24 2:41pm Weight 79.83 kg March 24 2:41pm Body Temperature 98 [degF] 97.6-99.6 March 24, 2 019 2:41pm Heart Rate 62 /min 60-March 24 2:41pm Respiratory rate 18 /min -March 24, 2 019 2:41pm Oxygen saturation by 98 % 95-100 March Pulse oximetry 2:41pm BP Systolic 118 mm[Hg] 110-140 March 24 2:41pm BP Diastolic 72 mm[Hg] 60-90 March 24 2:41pm BMI (Body Mass Index) 26.7 kg/m2 March 242018 2:41pm Height 172.72 cm April 25, 2 019 10:42am Weight 79.37 kg April 25, 2 019 10:42am Body Temperature 97.5 [degF] 97.6-99.6 April 25, 2019 10:42am Heart Rate 86 /min -April 25, 2 019 10:42am Oxygen saturation by 98 % 95-100 April 252018 Pulse oximetry 10:42am BP Systolic 128 mm[Hg] 110-140 April 25, 2 019 10:42am BP Diastolic 82 mm[Hg] 60-90 April 25, 2 019 10:42am BMI (Body Mass Index) 26.6 kg/m2 April 152018 10:42am Height 172.72 cm May 08, 2 019 5:07am Weight 72.20 kg May 08, 2 019 5:07am Body Temperature 97.6 [degF] 97.6-99.6 May 08, 2019 7:37am Heart Rate 60 /min -May 08, 019 8:00am Respiratory rate 18 /min -May 08, 2019 7:37am Oxygen saturation by 99 % 95-100 May 082018 Pulse oximetry 7:37am BP Systolic 110 mm[Hg] 110-140 May 08, 019 7:37am BP Diastolic 56 mm[Hg] 60-90 May 08, 019 7:37am BMI (Body Mass Index) 24.2 kg/m2 April 162018 5:07am
--- NOTE | 2019-05-09 16:59 | Electrocardiograph Report ---
APPROVED REPORT Exam: Resting ECG HR:75 bpm ECG Measurements Heart Rate 75 AXES MN 118 P 1 QRSd 76 QRS 33 QT 348 T37 QTc 388 <Conclusion> Normal sinus rhythm Normal ECG Electronically signed by : Manpreet Poe, 05/09/2019 16:59:39
== END 2019-05-08 10:17 | disposition home or self-care (01) ==
LOC: 2ND 09:46 → ER 09:46 → 2ND 14:59
PROVIDERS: ADMIT Emergency Medicine; ATTEND Emergency Medicine
CPT/HCPCS: 36415; 70450; 71020; 71046; 80048; 80053; 81001; 82962; 83605; 84484; 85025; 85651; 86140; 87040; 87275; 87276; 87507; 93005; 93970; 99285; G0378; J2405; J3370

== ENCOUNTER 2019-05-21 02:29 | Observation (INO) ==
--- NOTE | 2019-05-21 02:42 | Emergency Department Note ---
ED Disposition Clinical Impression: Syncope and collapse Disposition: Admitted as Observation Condition on Discharge: Fair - Critical Care Critical Care Time: No Attestation: On 05/21/19, the high probability of a clinically significant, sudden or life threatening deterioration of the following system(s) required my full and direct attention, intervention and personal management. The time I documented below is in addition to time spent performing reported procedures but includes the following listed in this critical care notation. Medical Decision Making - Twin Inquiry Pt receiving controlled substance: No Vital Signs: 05/21/19 02:46 05/21/19 02:54 Temperature 97.5 F L Temperature Source Oral Pulse Rate [Left Radial] 75 Pulse Rate [Orthostatic Lying Right Radial] 75 Pulse Rate [Orthostatic Sitting Right Radial] 103 H Pulse Rate [Orthostatic Standing Right Radial] 91 H Respiratory Rate 16 Blood Pressure [Orthostatic Lying Right Arm] 109/76 L Blood Pressure [Orthostatic Sitting Right Arm] 117/69 Blood Pressure [Orthostatic Standing Right Arm] 121/53 L Blood Pressure [Right Arm] 109/76 L Blood Pressure Mean [Right Arm] 87 Blood Pressure Source [Right Arm] Automatic Cuff Blood Pressure Position [Right Arm] Sitting 02 Sat by Pulse Oximetry 100 Oxygen Delivery Method Room Air - Lab Data Lab Results 05/21/19 02:49: WBC 10.0, RBC 4.70, Hgb 14.5, Hct 45.8, MCV 97.4 H, MCH 30.9, MCHC 31.7 L, RDW 12.5, Plt Count 476 H, MPV 7.8, Neut % (Auto) 61.8, Lymph % (Auto) 28.0, [place] % (Auto) 7.4, Eos % (Auto) 2.4, Baso % (Auto) 0.4, Neut # (Auto) 6.2, Lymph # (Auto) 2.8, [place] # (Auto) 0.7, Eos # (Auto) 0.2, Baso # (Auto) 0.0 05/21/19 02:49: Sodium 139, Potassium 4.1, Chloride 101, Carbon Dioxide 25, Anion Gap 17.1 H, BUN 17, Creatinine 1.07, Estimated Creat Clear 80, Estimated GFR 71, Est GFR ( Amer) 87, Glucose 154 H, Calcium 9.4, Total Bilirubin 0.4, AST 24, ALT 19, Alkaline Phosphatase 99, Troponin I < 0.02, Total Protein 7.7, Albumin 3.7, Globulin 4.0 H, Albumin/Globulin Ratio 0.9 L 05/21/19 02:49: D-Dimer 2340 H* 05/21/19 02:49: Lipase 202 Result diagrams: 05/21/19 02:49 05/21/19 02:49 Orders (Tests/Meds): ED MEDICATIONS Discontinued Medications Generic Name Dose Route Start Last Admin Trade Name Jia PRN Reason Stop Dose Admin Ioversol 100 ml 05/21/19 05:08 05/21/19 05:10 Rad-Optiray 350 100ml Vial IV 05/21/19 05:09 100 ml ONCE ONE Administration Protocol Sodium Chloride 1,000 ml 05/21/19 03:08 05/21/19 03:26 Sod Chlor 0.9% 1000ml Bag IV 05/21/19 03:09 1,000 ml BOLUS ONE Administration Sodium Chloride 10 ml 05/21/19 05:08 05/21/19 05:10 Rad-Saline Flush 10ml Syringe IV 05/21/19 05:09 10 ml ONCE ONE Administration Sodium Chloride 40 ml 05/21/19 05:08 05/21/19 05:10 Rad-Ns 50ml Vial IV 05/21/19 05:09 40 ml ONCE ONE Administration ORDERS Category Date Time Status CT abdomen pelvis w con Stat Cat Scan 05/21/19 03:[address] angio chest Stat Cat Scan 05/21/19 03:[address] cervical spine wo con Stat Cat Scan 05/21/19 03:[address] head/brain wo con Stat Cat Scan 05/21/19 03:49 Taken Toe XR right minimum 2 views [XR toe RT min 2V] Stat Exams 05/21/19 03:11 Taken XR ankle RT min 3V Stat Exams 05/21/19 03:11 Taken XR chest AP Stat Exams 05/21/19 03:08 Taken Troponin I Q3H Lab 05/21/19 06:15 Ordered Troponin I Q3H Lab 05/21/19 09:15 Ordered Urinalysis and Microscopic Stat Lab 05/21/19 03:07 Ordered - CT Data CT Scan: Head, C-Spine, Abdomen, Pelvis, Chest Time Received: 04:47 ([facility] fax) ED CT Reviewed: Yes: I have viewed the radiologist's interpretation Findings Narrative: Cervical spine: No fractures or dislocations. Multilevel spondylitic changes Head: No acute intracranial abnormality. CT angiogram chest: No acute findings. Abdomen and pelvis: No evidence of acute abnormality. Left nephrolithiasis. - ECG Data Tracing #1 EKG interpreted by Erasmo Wall MD: Rhythm: sinus Rate: 74 [place]: normal Ectopy: none Conduction: normal ST Segment Changes: none T Wave Changes: none Q Waves: none No evidence of acute ischemia or injury Normal electrocardiogram - Physician Consults Physician Consulted: Kris Time: 05:30 Reason -: Admission Comment/Response: Agrees to admit the patient to the hospital. We discussed the patient's clinical information, including history, exam, laboratory and radiolog y results and ED course. Per hospital procedure, I will write temporary bridge inpatient orders on the patient. Specific orders requested by the admitting physician: quantitative analyst developer General Adult HPI - General Stated complaint: Passed out three times Time Seen by Provider: 05/21/19 02:53 - History of Present Illness HPI narrative: Brought in by family for syncope. States that he felt like a million bucks this afternoon. Woke up tonight to use the bathroom and while urinating felt very lightheaded. He thought he needed to go sit on the bed but before he could do so he passed out. Says that he woke up in a drenching sweat. Has a scratch on his forehead where he hit his head. Has a scratch on his left sofia. Has pain in his right ankle and toe from injuries due to the fall. Denies any new neck pain. States that he has some chronic neck soreness. Denies chest pain or shortness of breath. Abdomen is uncomfortable since the episode, particularly if he sits up. No vomiting or diarrhea. He says that he tried to sit up a couple of times after this happened and each time he would raise his head up above his heart he would pass out again, and happened a couple more times. Feels very thirsty since the incident. Recently admitted to this hospital, seen by me in the emergency department on 05/06/2019 for syncope and a fever, a few days after having had back surgery. He was admitted to the hospital and developed diarrhea while in the hospital and tested positive for C. difficile. He says he completed his antibiotics and no longer has diarrhea and was feeling good before this episode tonight. - Related Data Home Medications Medication Instructions Recorded Confirmed Atorvastatin Calcium [Atorvastatin 80 mg PO HS 05/06/19 05/18/19 80mg Tab] Cyclobenzaprine HCl 10 mg PO BIDP PRN 05/06/19 05/18/19 [Cyclobenzaprine 10mg Tab] Pregabalin [Lyrica 75mg Cap] 75 mg PO TID 05/06/19 05/18/19 Tamsulosin HCl 0.4 mg PO DAILY 05/06/19 05/18/19 lisinopriL [Lisinopril 40mg Tablet] 40 mg PO DAILY 05/06/19 05/18/19 oxycodone-acetaminophen 5 mg-325 PO #19 tab 05/18/19 05/18/19 mg tablet Previous Rx's Medication Instructions Recorded ondansetron HCl 4 mg tablet 4 mg PO TIDP PRN #20 tab 05/18/19 Allergies Allergy/AdvReac Type Severity Reaction Status Date / Time No Known Allergies Allergy Verified 05/21/19 02:59 [facility] History - Hepatitis A Screen Attestation statement:: This patient has been screened for Hepatitis A risk factors. I have reviewed the patient's past medical history: Yes Medical History: Reports:: Anxiety, Depression, Hyperlipidemia, Hypertension Denies:: Diabetes Mellitus Type 1, Diabetes Mellitus Type 2 Other Medical History: Reports: Arthritis, Other Comment: enlarged prostate, ddd, Other Surgeries: Yes: Hernia Repair, Other Amputation: No Fractures: No Comment: appenidix, back x2, kidney scopes - Social History Smoking Status: Never smoker Tobacco Type: smokeless tobacco Alcohol Intake: never Substance Use Type: marijuana Occupational Status: unemployed Housing: house Household Members: none - Psychiatric History Pschychiatric History:: Reports:: Anxiety, Depression Family Hx:: Cancer, Diabetes ROS Obtained: Yes All systems reviewed & no additional complaints - Constitutional Constitutional: Denies fever(s) - Cardiovascular Cardiovascular: Denies chest pain - Respiratory Respiratory: No cough, No dyspnea, No coughing up blood - Gastrointestinal Gastrointestingal: Reports: abdominal pain, nausea. Denies: diarrhea, vomiting - Genitourinary Male Genitourinary: Denies difficulty urinating - Musculoskeletal Musculoskeletal: Reports back pain (Due to recent surgery) - Neurologic Neurologic: Denies numbness Physical Exam - General General appearance: alert, in no apparent distress - Expanded Head Exam Head exam physical: Present: abrasion (Superficial, upper forehead) - Eye Eye exam: Present: normal appearance, PERRL, EOMI - ENT ENT exam: Present: mucous membranes moist - Neck Neck exam: Present: normal inspection, full ROM. Absent: tenderness - Chest Chest inspection: Present: normal inspection, symmetric chest wall rise - Respiratory Respiratory exam: Present: normal lung sounds bilaterally. Absent: respiratory distress - Cardiovascular Cardiovascular exam: Present: regular rate, normal rhythm, normal heart sounds - Abdominal Exam Abdominal exam: Present: tenderness, normal bowel sounds. Absent: distention Abdominal tenderness: Present: moderate (Periumbilical) - Neurological Exam Neurological exam: Present: alert, oriented X3, CN II-XII intact, normal gait. Absent: motor sensory deficit - Psychiatric Psychiatric exam: Present: normal affect, normal mood, flat affect - Skin Skin exam: Present: warm, dry
[2019-05-21 03:31] LABS: Basophils % 0.4 % (0.1-2.0); Eosinophils # 0.2 K/mm3 (0.0-0.4); Eosinophils % 2.4 % (0.1-12.0); Hematocrit 45.8 % (42.0-52.0); Hemoglobin 14.5 g/dL (14.1-18.0); Lymphocytes # 2.8 K/mm3 (0.7-4.5); Mean Corpuscular HGB Conc 31.7 g/dL (31.8-35.4); Mean Corpuscular Volume 97.4 fl (80-94); Mean Platelet Volume 7.8 fl (7.4-10.4); Monocytes # 0.7 K/mm3 (0.1-1.0); Monocytes % 7.4 % (1.7-9.3); Neutrophils # 6.2 K/mm3 (1.8-7.8); Neutrophils % 61.8 % (37.0-80.0); Platelet Count 476 K/mm3 (142-424); Red Cell Distribution Width 12.5 % (11.5-17.5)
[2019-05-21 03:43] LABS: Alanine Aminotransferase 19 U/L (12-78); Albumin Level 3.7 gm/dL (3.4-5.0); Albumin/Globulin Ratio 0.9 (1.1-1.8); Alkaline Phosphatase 99 U/L (46-116); Anion Gap 17.1 mEq/L (5-15); Aspartate Amino Transferase 24 U/L (15-37); Bilirubin,Total 0.4 mg/dL (0.2-1.0); Blood Urea Nitrogen 17 mg/dL (7-18); Calcium 9.4 mg/dL (8.5-10.1); Carbon Dioxide 25 mmol/L (21.0-32.0); Chloride 101 mmol/L (98-107); Glucose 154 mg/dL (74-106); Sodium 139 mmol/L (136-145); Total Protein,Serum 7.7 gm/dL (6.4-8.2)
--- NOTE | 2019-05-21 09:02 | History & Physical Report ---
*Admission Date: 05/21/19 *Chief complaint: syncope *History of present illness: 54 yr old male presented to ed for syncope. States that he felt well until Woke up tonight to use the bathroom and while urinating felt very lightheaded. He thought he needed to go sit on the bed but before he could do so he passed out. pt states that he woke up in a drenching sweat. Scratch on his forehead where he hit his head and scratch on his left sofia. Pt states Pain in his right ankle and toe from injuries due to the fall. Denies chest pain or shortness of breath. Pt states he has been up to bathroom and does not feel light headed at this time.Pt states he recently tested positive for C. difficile. He says he completed his antibiotics and no longer has diarrhea and was feeling good before this episode. [facility] History I have reviewed the patient's past medical history: Yes Medical History: Reports:: Anxiety, Depression, Hyperlipidemia, Hypertension Denies:: Diabetes Mellitus Type 1, Diabetes Mellitus Type 2 *Have you ever received a pneumonia vaccine?: No *Have you received a flu vaccine this season?: Yes Other Medical History: Reports: Arthritis, Other Other Surgeries: Yes: Appendectomy, Hernia Repair, Other Amputation: No Fractures: No - *Social History Educational Level: Completed High School Smoking Status: Never smoker Tobacco Type: smokeless tobacco # Packs/Day (cigarettes): 0 Alcohol Intake: former Alcohol Intake Frequency:: holidays/special occasions only Substance Use Type: marijuana *Occupational Status:: unemployed Housing: other Household Members: children *Travel in the last 8 weeks: None - Psychiatric History Pschychiatric History:: Reports:: Anxiety, Depression Family Hx:: Cancer, Diabetes Review of Systems - Review of Systems Review of systems:: pertinent systems reviewed and negative unless documented below - Constitutional Reports malaise, Denies body ache(s), Denies fatigue - Eyes Denies blurry vision, Denies change in vision - ENT Reports dizziness, Denies nasal obstruction - *Cardiovascular Denies chest pain at rest, Denies shortness of breath - *Respiratory Denies chest congestion - *Gastrointestinal Denies nausea, Denies vomiting - *Genitourinary Denies difficulty urinating - *Musculoskeletal Denies joint pain - Integumentary/Breasts Denies rash - *Neurologic Denies numbness - Psychiatric Denies anxiety - Endocrine Denies excessive sweating - Hematologic/Lymphatic Denies easy bruising Meds Home Medications Medication Instructions Recorded Confirmed Type Atorvastatin Calcium [Atorvastatin 80 mg PO HS 05/06/19 05/21/19 History 80mg Tab] Pregabalin [Lyrica 75mg Cap] 75 mg PO TID 05/06/19 05/21/19 History Tamsulosin HCl 0.4 mg PO DAILY 05/06/19 05/21/19 History lisinopriL [Lisinopril 40mg Tablet] 40 mg PO DAILY 05/06/19 05/21/19 History ondansetron HCl 4 mg tablet 4 mg PO TIDP PRN #20 tab 05/18/19 05/21/19 Rx oxycodone-acetaminophen 5 mg-325 5 mg PO TID #19 tab 05/18/19 05/21/19 History mg tablet Allergies Allergy/AdvReac Type Severity Reaction Status Date / Time No Known Allergies Allergy Verified 05/21/19 02:59 Exam Vital signs and Labs for Last 24 Hours: Temp Pulse Resp BP Pulse Ox 98.2 F 72 17 125/62 97 05/21/19 08:00 05/21/19 08:00 05/21/19 08:00 05/21/19 08:00 05/21/19 08:00 Laboratory Results - last 24 hr 05/21/19 02:49: WBC 10.0, RBC 4.70, Hgb 14.5, Hct 45.8, MCV 97.4 H, MCH 30.9, MCHC 31.7 L, RDW 12.5, Plt Count 476 H, MPV 7.8, Neut % (Auto) 61.8, Lymph % (Auto) 28.0, [place] % (Auto) 7.4, Eos % (Auto) 2.4, Baso % (Auto) 0.4, Neut # (Auto) 6.2, Lymph # (Auto) 2.8, [place] # (Auto) 0.7, Eos # (Auto) 0.2, Baso # (Auto) 0.0 05/21/19 02:49: Sodium 139, Potassium 4.1, Chloride 101, Carbon Dioxide 25, Anion Gap 17.1 H, BUN 17, Creatinine 1.07, Estimated Creat Clear 80, Estimated GFR 71, Est GFR ( Amer) 87, Glucose 154 H, Calcium 9.4, Total Bilirubin 0.4, AST 24, ALT 19, Alkaline Phosphatase 99, Troponin I < 0.02, Total Protein 7.7, Albumin 3.7, Globulin 4.0 H, Albumin/Globulin Ratio 0.9 L 05/21/19 02:49: D-Dimer 2340 H* 05/21/19 02:49: Lipase 202 05/21/19 05:45: Troponin I < 0.02 I & O for Last 24 hours: Intake & Output 05/18/19 05/19/19 05/20/19 05/21/19 11:59 11:59 11:59 11:59 Intake Total 60 / 60 Balance 60 / 60 Weight 163 lb 5 oz - Constitutional no acute distress - *Routine HEENT Exam Head: Present: normocephalic Eye: Present: PERRL ENT: Present: mucous membranes moist - *Routine Neck Exam Present: supple, full ROM - *Routine Respiratory Exam Present: CTA bilaterally - *Routine Cardiovascular Exam Present: RRR - *Routine Abdominal Exam Present: soft, normoactive bowel sounds. Absent: tenderness - *Routine Extremities Exam Present: full ROM. Absent: cyanosis, clubbing, edema - *Routine Skin Exam Present: warm. Absent: rash - *Routine Neurological Exam Present: alert, oriented X3 - Routine Psychiatric Exam Present: normal affect Assessment and Plan - Assessment and plan all Dx Assessment and Plan for all problems:: tiesha to round later today, all orders per tiesha
[2019-05-21 14:14] LABS: Microscopic, Urine URINE MICROSCOPIC (MICROSCOPIC)
[2019-05-21 14:30] LABS: Appearance,Urine CLEAR (Clear); Bilirubin,Urine Negative (Negative); Blood, Urine TRACE-I (Negative); Color,Urine YELLOW (Yellow); Glucose,Urine (UA) Negative (Negative); Ketones,Urine Negative (Negative); Leukocyte Esterase,Urine Negative (Negative); PH,Urine 5.5 (5.0-8.5); Protein,Urine Negative (Negative); Specific Gravity, Urine 1.015 (1.005-1.030); Urobilinogen,Urine 0.2 EU/dl (0.2)
[2019-05-21 14:55] LABS: RBC,Urine Occasional #/hpf (0-3); Squamous Epithelial Cell,Urine Occasional #/hpf (0-5)
--- NOTE | 2019-05-21 15:07 | Pharmacy Consult Notes ---
[facility] Pharmacy VTE Monitoring - Patient Demographics Admission date: 05/21/19 Report Date: 05/21/19 Time: 15:07 Allergies/Adverse Reactions: Patient Allergies No Known Allergies Allergy (Verified 05/21/19 02:59) Height: 1.73 m Weight: 74.077 kg Patient Problems: Current Active Problems Syncope and collapse (Acute) - VTE Risk Labs: VTE Related Lab Results Hgb 14.5 g/dL (14.1-18.0) 05/21/19 02:49 Hct 45.8 % (42.0-52.0) 05/21/19 02:49 Plt Count 476 K/mm3 (142-424) H 05/21/19 02:49 BUN 17 mg/dL (7-18) 05/21/19 02:49 Creatinine 1.07 mg/dL (0.70-1.30) 05/21/19 02:49 Estimated Creat Clear 80 mL/min (50-200) 05/21/19 02:49 Was VTE Risk Assessment Performed: Yes VTE Score: 5 VTE Risk Level: Low Risk - Prophylaxis VTE Prophylaxis Ordered?: Yes Types of VTE Prophylaxis: TEDS Knee High Location of Applied Device: Bilateral Lower Extremeties
[2019-05-22 06:38] LABS: Basophils % 0.5 % (0.1-2.0); Eosinophils # 0.2 K/mm3 (0.0-0.4); Eosinophils % 2.1 % (0.1-12.0); Hematocrit 36.6 % (42.0-52.0); Lymphocytes # 2.2 K/mm3 (0.7-4.5); Lymphocytes % 30.7 % (10-50); Mean Corpuscular HGB Conc 32.9 g/dL (31.8-35.4); Mean Platelet Volume 6.9 fl (7.4-10.4); Monocytes # 0.5 K/mm3 (0.1-1.0); Monocytes % 6.8 % (1.7-9.3); Neutrophils # 4.2 K/mm3 (1.8-7.8); Neutrophils % 59.9 % (37.0-80.0); Platelet Count 347 K/mm3 (142-424); Red Blood Count 3.85 M/mm3 (4.60-6.20); Red Cell Distribution Width 12.4 % (11.5-17.5)
[2019-05-22 06:46] LABS: Anion Gap 12.1 mEq/L (5-15); Calcium 8.5 mg/dL (8.5-10.1)
--- NOTE | 2019-05-22 10:25 | Discharge Summary ---
General - General Admission date:: 05/21/19 Discharge date: 05/22/19 HPI HPI: 54 yr old male presented to ed for syncope. States that he felt well until Woke up tonight to use the bathroom and while urinating felt very lightheaded. He thought he needed to go sit on the bed but before he could do so he passed out. pt states that he woke up in a drenching sweat. Scratch on his forehead where he hit his head and scratch on his left sofia. Pt states Pain in his right ankle and toe from injuries due to the fall. Denies chest pain or shortness of breath. Pt states he has been up to bathroom and does not feel light headed at this time.Pt states he recently tested positive for C. difficile. He says he completed his antibiotics and no longer has diarrhea and was feeling good before this episode. Hospital Course Hospital Course: pt has did well with no episodes of syncope - no chest pain has arvin activity and diet - no palpitations- labs stable Objective Vital signs: Temp Pulse Resp BP Pulse Ox 98.6 F 73 18 136/75 100 05/22/19 08:00 05/22/19 08:00 05/22/19 08:00 05/22/19 08:00 05/22/19 08:00 no acute distress - *Routine HEENT Exam Head: Present: normocephalic Eye: Present: EOMI, PERRL ENT: Present: mucous membranes dry - *Routine Neck Exam Present: supple - *Routine Respiratory Exam Present: CTA bilaterally - *Routine Cardiovascular Exam Present: RRR, murmur - *Routine Abdominal Exam Present: soft - *Routine Extremities Exam Present: full ROM - *Routine Skin Exam Present: intact - *Routine Neurological Exam Present: alert, oriented X3, CN II-XII intact - Routine Psychiatric Exam Present: normal affect Results Labs on day of discharge: Labs from last 24 hours 05/22/19 05/22/19 05/21/19 06:15 06:15 14:05 WBC 7.0 D RBC 3.85 L Hgb 12.0 L Hct 36.6 L MCV 95.0 H MCH 31.2 MCHC 32.9 RDW 12.4 Plt Count 347 D MPV 6.9 L Neut % (Auto) 59.9 Lymph % (Auto) 30.7 [place] % (Auto) 6.8 Eos % (Auto) 2.1 Baso % (Auto) 0.5 Neut # (Auto) 4.2 Lymph # (Auto) 2.2 [place] # (Auto) 0.5 Eos # (Auto) 0.2 Baso # (Auto) 0.0 Sodium 140 Potassium 4.1 Chloride 106 Carbon Dioxide 26 Anion Gap 12.1 BUN 10 D Creatinine 0.86 Estimated Creat Clear 104 Estimated GFR 92 Est GFR ( Amer) 111 D Glucose 103 Calcium 8.5 Troponin I Urine Color Yellow Urine Appearance Clear Urine pH 5.5 Ur Specific [place] 1.015 Urine Protein Negative Urine Glucose (UA) Negative Urine Ketones Negative Urine Blood Trace-i Urine Nitrate Negative Urine Bilirubin Negative Urine Urobilinogen 0.2 Ur Leukocyte Esterase Negative Urine RBC Occasional Urine WBC None Ur Squamous Epith Cells Occasional Urine Bacteria None 05/21/19 09:45 WBC RBC Hgb Hct MCV MCH MCHC RDW Plt Count MPV Neut % (Auto) Lymph % (Auto) [place] % (Auto) Eos % (Auto) Baso % (Auto) Neut # (Auto) Lymph # (Auto) [place] # (Auto) Eos # (Auto) Baso # (Auto) Sodium Potassium Chloride Carbon Dioxide Anion Gap BUN Creatinine Estimated Creat Clear Estimated GFR Est GFR ( Amer) Glucose Calcium Troponin I < 0.02 Urine Color Urine Appearance Urine pH Ur Specific [place] Urine Protein Urine Glucose (UA) Urine Ketones Urine Blood Urine Nitrate Urine Bilirubin Urine Urobilinogen Ur Leukocyte Esterase Urine RBC Urine WBC Ur Squamous Epith Cells Urine Bacteria DS: Diagnosis - Discharge Diagnosis (1) Syncope and collapse Status: Acute (2) Vasovagal episode Status: Acute (3) Hypertension Status: Chronic Discharge Plan - Patient Discharge Instructions ACTIVITY: Continue current activity DIET: continue same diet Patient Instructions: DI for Syncope in Adults (Fainting) - Follow up Plan Disposition: Home, Self-Halfway Medications: Home Medications Medication Instructions Recorded Confirmed Type Atorvastatin Calcium [Atorvastatin 80 mg PO HS 05/06/19 05/21/19 History 80mg Tab] Pregabalin [Lyrica 75mg Cap] 75 mg PO TIDP PRN 05/06/19 05/22/19 History Tamsulosin HCl 0.4 mg PO HS 05/06/19 05/22/19 History lisinopriL [Lisinopril 40mg Tablet] 40 mg PO HS 05/06/19 05/22/19 History ondansetron HCl 4 mg tablet 4 mg PO TIDP PRN #20 tab 05/18/19 05/21/19 Rx oxycodone-acetaminophen 5 mg-325 5 mg PO TID PRN #19 tab 05/18/19 05/21/19 History mg tablet Cyclobenzaprine HCl [Flexeril 10mg 10 mg PO BIDP PRN 05/22/19 05/22/19 History tablet] Prescriptions/Medication Reconciliation: New Hydrocod/Acet 5/325 mg [[place] 5/325mg tablet] 1 tab PO Q6 tablet Hydrocod/Acet 5/325 mg [[place] 5/325mg tablet] 1 tab PO Q6HP PRN tablet PRN Reason: MODERATE PAIN Continued oxycodone-acetaminophen 5 mg-325 mg tablet 5 mg PO TID PRN #19 tab PRN Reason: PAIN ondansetron HCl 4 mg tablet 4 mg PO TIDP PRN #20 tab PRN Reason: Nausea Tamsulosin HCl 0.4 mg PO HS Atorvastatin Calcium [Atorvastatin 80mg Tab] 80 mg PO HS Cyclobenzaprine HCl [Flexeril 10mg tablet] 10 mg PO BIDP PRN PRN 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
--- NOTE | 2019-05-22 16:58 | Electrocardiograph Report ---
APPROVED REPORT Exam: Resting ECG HR:74 bpm ECG Measurements Heart Rate 74 AXES VA 124 P 11 QRSd 78 QRS 51 QT 376 T66 QTc 417 <Conclusion> Normal sinus rhythm Normal ECG Electronically signed by : Manpreet Poe, 05/22/2019 16:57:51
== END 2019-05-22 11:30 | disposition home or self-care (01) ==
LOC: ER 02:29 → 2ND 02:29
PROVIDERS: ADMIT Emergency Medicine; ATTEND Emergency Medicine
CPT/HCPCS: 36415; 70450; 71010; 71045; 71275; 72125; 73610; 73660; 74177; 80048; 80053; 81001; 83690; 84484; 85025; 85378; 93005; 96365; 99284; G0378; Q9967

== ENCOUNTER → 2019-08-10 13:17 | Outpatient (CLI) | payer MEDICAID, SELFPAY ==
--- NOTE | 2019-08-10 13:18 | MR_ITS ---
PROCEDURE: MR THORACIC SPINE WO CON CLINICAL INDICATION: thoracic pain radiating to left ribs Mid back pain, pain between scapula radiating into the left ribs and left shoulder COMPARISON: CT ANGIO CHEST from 05/21/2019 TECHNIQUE: Routine multiplanar multi echo sequences are performed without gadolinium enhancement. FINDINGS: There is normal alignment. No acute fracture or dislocation is evident. There is mild degenerative changes in the thoracic spine with slight decrease in the disc space from T3 to T9 with some disc desiccation. There is some minimal endplate irregularity at T8, T9, T10, T11, and T12. There is minimal left paracentral disc protrusion versus small disc osteophyte complex at T8-T9 with some minimal flattening of the left aspect of the cord anteriorly. Spinal cord has an otherwise unremarkable appearance. IMPRESSION: 1. Mild discogenic degenerative changes of the thoracic spine 2. There is minimal left paracentral disc protrusion versus small disc osteophyte complex at T8-T9 with some minimal flattening of the left aspect of the cord anteriorly Dictated by: Marquis Zavala MD 08/12/2019 06:55 Electronically signed by Marquis Zavala MD in [place] 08/12/2019 06:55
== END ==
PROVIDERS: PCP Physician Assistant; Visit Provider Physician Assistant
DX: M54.6 Pain in thoracic spine (principal)
CPT/HCPCS: 72146

== ENCOUNTER → 2019-11-28 09:10 | Outpatient (POV) | payer MEDICAID, SELFPAY ==
[2019-11-28 09:35] VITALS: BP 127/85; PULSE 68; RESP 18; TEMP 36.6; O2SAT 99; BMI 26.6
--- NOTE | 2019-11-28 10:06 | HMH.PMCON ---
Assessment and Plan (1) Thoracic degenerative disc disease Current visit: Yes Status: Chronic Category: Medical Code(s): M51.34 - Other intervertebral disc degeneration, thoracic region - Assessment and plan all Dx Assessment and Plan for all problems:: We will plan a T8-T9 thoracic epidural steroid injection for the patient. We will see if this benefits him. I do believe it would be beneficial given his symptomology. I discussed the procedure with him. I answered his questions. He is not on any anticoagulation therapy. I will follow-up with the patient after this reassess his symptoms at that time. He has been instructed to call the office if he has any issues prior to his next appointment. Dr. Villagomez has reviewed this note and agrees with this plan of care. This note was dictated using voice recognition software and may contain errors or omissions HPI - Data of Consult Consult date: 11/28/19 Requesting Physician: Kareen Starkey APRN Primary Care Provider: EPIFANIO Russell - Consult Narrative Reason for consult: Thoracic back pain History of present illness: Mr. Barr is a 54 year old male who presents today for consultation in regards to his mid back pain. Patient had a lumbar fusion back in 2018 and his low back is doing all right however he is having upper back pain. He has a thoracic MRI showing osteophyte complex at T8-T9 with minimal flattening of the left aspect of the cord anteriorly. Patient states his pain is a 6 out of 10. He has a difficulty with activity daily living. He is tried and failed anti-inflammatories. He is in so much pain that he has difficulty with his stretching program. Patient sitting prolonged periods walking prolonged periods increased pain. Rest, heat, lying on the side decrease pain. CC: Kareen Starkey APRN [facility] History I have reviewed the patient's past medical history: Yes Medical History: Reports:: Anxiety, Depression, Hyperlipidemia, Hypertension Denies:: Cancer, Diabetes Mellitus Type 1, Diabetes Mellitus Type 2, MRSA *Have you ever received a pneumonia vaccine?: Yes *Have you received a flu vaccine this season?: Yes Other Medical History: Reports: Arthritis, Other Other Surgeries: Yes: Appendectomy, Hernia Repair, Other Amputation: No Fractures: No - *Social History Smoking Status: Never smoker Tobacco Type: smokeless tobacco # Packs/Day (cigarettes): 0 Alcohol Intake: never Alcohol Intake Frequency:: holidays/special occasions only Substance Use Type: marijuana *Occupational Status:: other Housing: house Household Members: other *Travel in the last 8 weeks: None - Psychiatric History Pschychiatric History:: Reports:: Anxiety, Depression Family Hx:: Unable to obtain Review of Systems - Review of Systems ROS General: no recent weight change, no fever, no sleep disturbances Respiratory: no cough, no shortness of air, no recurring pulmonary infections Cardiovascular/Peripheral Vascular: No chest pain, No palpitations, no edema, no shortness of breath. Gastrointestinal: no new onset incontinence, normal bowel movements reported Genitourinary: no new onset incontinence Musculoskeletal: Back pain Psychiatric: normal mood/ affect Neurological: [denies new onset weakness in extremities], [denies new onset balance issues] Meds Home Medications Medication Instructions Recorded Confirmed Type cefdinir 300 mg capsule 300 mg PO Q12H 10 Days #20 cap 09/28/19 11/08/19 Rx prednisone 20 mg tablet 20 mg PO BID #10 tab 09/28/19 11/08/19 Rx atorvastatin 80 mg tablet 80 mg PO HS #90 tab 10/26/19 11/08/19 Rx tamsulosin 0.4 mg capsule 0.4 mg PO HS #90 cap 10/26/19 11/08/19 Rx hydrocodone 5 mg-acetaminophen 325 1 tab PO BID PRN #14 tab 11/08/19 Rx mg tablet pregabalin 100 mg capsule 100 mg PO TID #90 cap 11/09/19 Rx Allergies Allergy/AdvReac Type Severity Reaction Status Date / Time amoxicillin Allergy Mild unknown Verified 11/07
== END ==
PROVIDERS: PCP Physician Assistant; Visit Provider Clinical Nurse Specialist Family Health
DX: M51.34 Other intervertebral disc degeneration, thoracic region (principal)
CPT/HCPCS: 99202

== ENCOUNTER 2020-01-06 08:44 | Day surgery (SDC) | payer MEDICAID, SELFPAY ==
[2020-01-06 08:56] VITALS: BP 159/93; PULSE 73; RESP 18; TEMP 36.2; O2SAT 98; BMI 25.8
[2020-01-06 09:30] VITALS: BP 159/78; PULSE 82; RESP 18; TEMP 36.6; O2SAT 97
[2020-01-06 09:33] VITALS: BP 158/88; PULSE 74; RESP 18; O2SAT 98
--- NOTE | 2020-01-06 09:41 | P.PCN_ITS ---
- Procedure Date: 01/06/20 Time: 09:41 Anesthesiologist:: Devang Villagomez MD Complications:: None Pre-procedure Diagnosis:: Degenerative disc disease of thoracic spine with thoracic radiculopathy symptoms Post-procedure Diagnosis:: Same Indications for Procedure:: This patient is a pleasant 54-year-old white male who we have been treating for mid back pain with thoracic radiculopathy symptoms. He does have an osteophyte complex at T8-T9 with some degenerative changes throughout. He has had previous lumbar fusion. Most of his pain is in the mid back. We will do a thoracic epidural steroid injection under fluoroscopy today. Procedure Details:: Thoracic epidural steroid injection Informed consent was obtained and the risk and benefits of the procedure were explained to the patient. Patient was taken to the procedure room. The back was prepped using ChloraPrep. The skin and subcutaneous tissues were anesthetized using lidocaine. I placed a 17-gauge epidural needle into the T8- T9 epidural space. After confirmation of needle placement in the epidural space, with dye, we injected lidocaine 2 mL's and Depo-Medrol 80 mg into the epidural space. Patient tolerated the procedure well with no complications. Plan and Disposition:: We will follow-up with him in 2 weeks. Will reevaluate symptoms at that time.
[2020-01-06 09:48] VITALS: BP 159/95; PULSE 67; RESP 18; O2SAT 98
== END 2020-01-06 09:49 | disposition home or self-care (01) ==
LOC: SC.PAINP 08:45
PROVIDERS: PCP Physician Assistant; Visit Provider Anesthesiology
DX: M51.14 Intervertebral disc disorders with radiculopathy, thoracic region (principal); I10 Essential (primary) hypertension; N40.0 Benign prostatic hyperplasia without lower urinary tract symptoms; Z88.1 Allergy status to other antibiotic agents; E78.5 Hyperlipidemia, unspecified; N28.9 Disorder of kidney and ureter, unspecified; Z90.49 Acquired absence of other specified parts of digestive tract; Z87.442 Personal history of urinary calculi; Z79.899 Other long term (current) drug therapy
CPT/HCPCS: 62321; J1040; Q9966

== ENCOUNTER → 2020-01-16 17:20 | Outpatient (CLI) | payer MEDICAID, SELFPAY ==
[2020-02-10 18:53] LABS: Specimen Type NOT PROVIDED
[2020-02-10 18:54] LABS: Composition SEE BELOW:; Size 3X3 mm
[2020-02-10 18:55] LABS: Photo TO FOLLOW
== END ==
PROVIDERS: Visit Provider Physician Assistant
DX: N20.0 Calculus of kidney (principal)
CPT/HCPCS: 82370

== ENCOUNTER → 2020-01-26 08:45 | Outpatient (POV) | payer MEDICAID, SELFPAY ==
--- NOTE | 2020-01-26 09:07 | P.CONS_ITS ---
[facility] Pain Management SOAP Note Subjective:: patient is a pleasant 54-year-old white male who presents today for follow-up after a thoracic epidural steroid injection. Patient says he did not get any relief after the injection. He says that he feels most of his pain is coming from his neck. His primary care provider has ordered an MRI of his cervical spine. He is scheduled to undergo the MRI on 31 January. He expects to be referred to a neurosurgeon after the MRI. He says that he will let his primary care provider do the referral. He would like to follow-up with us by calling the office after he sees a neurosurgeon. He rates his pain a 4 out of 10 today. Review of Systems General: No recent weight changes, no fever, no sleep disturbances Respiratory: No cough, no shortness of air, no recurring pulmonary infections Cardiovascular/peripheral vascular: No chest pain, no palpitations, no edema, no shortness of breath Gastrointestinal: No new onset incontinence, normal bowel movements reported Genitourinary: No new onset incontinence Musculoskeletal: Neck pain, arm pain, mid back pain Psychiatric: Normal mood/affect Neurological: [Denies weakness in extremities], [denies balance issues] Objective:: Physical exam General: Alert and oriented x3, no acute distress, pleasant and cooperative, [on room air] Lungs: Respirations even and unlabored, symmetrical chest expansion Eyes: PERRL Musculoskeletal: Flexion and extension of: Cervical and thoracic spine somewhat guarded secondary to pain, deep tendon reflexes normal, strength in upper and lower extremities [5/5], [abnormal gait noted] 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 He has been instructed to contact clinic if he has any concerns before his next appointment. The patient and I specifically discussed risk factors for COVID19. These risks include, but are not limited to age greater than 60, heart or lung disease, diabetes, immunosuppression, and travel. We also discussed NSAIDs may worsen COVID19 infection or symptoms. Patient should not use NSAIDs to treat COVID19 signs or symptoms. Patient was also informed that any type of corticosteroid of any form (oral or injection) will decrease the patient's immune system response and may increase the likelihood of COVID19 infection and symptoms. Hi Villagomez has reviewed this note and agrees with this plan of care. This note was dictated using voice recognition software and make contain errors or omissions. [facility] History Medical History: Reports:: Anxiety, Depression, Hyperlipidemia, Hypertension Denies:: Cancer, Diabetes Mellitus Type 1, Diabetes Mellitus Type 2, MRSA, Seizures *Have you ever received a pneumonia vaccine?: Yes *Have you received a flu vaccine this season?: Yes Other Medical History: Reports: Arthritis, Other Other Surgeries: Yes: Appendectomy, Hernia Repair, Other Amputation: No Fractures: No - *Social History Smoking Status: Never smoker Tobacco Type: smokeless tobacco # Packs/Day (cigarettes): 0 Alcohol Intake: never Alcohol Intake Frequency:: holidays/special occasions only Substance Use Type: marijuana *Occupational Status:: disabled Housing: house Household Members: other *Travel in the last 8 weeks: None - Psychiatric History Pschychiatric History:: Reports:: Anxiety, Depression Family Hx:: Unable to obtai
[2020-01-26 09:39] VITALS: BP 162/84; PULSE 65; RESP 18; O2SAT 98; BMI 25.8
== END ==
PROVIDERS: PCP Physician Assistant; Visit Provider Clinical Nurse Specialist Family Health
DX: M54.2 Cervicalgia (principal); M54.12 Radiculopathy, cervical region; M51.14 Intervertebral disc disorders with radiculopathy, thoracic region
CPT/HCPCS: 99212

== ENCOUNTER → 2020-02-01 14:12 | Outpatient (CLI) | payer MEDICAID, SELFPAY ==
--- NOTE | 2020-02-01 14:12 | MR_ITS ---
PROCEDURE: MR CERVICAL SPINE WO CON CLINICAL INDICATION: Neck pain radiating into left shoulder BILATERAL SHOULDER PAIN. BILATERAL HAND NUMBNESS WHEN DRIVING. HEADACHE. NECK PAIN. PAIN BETWEEN SCALPULA. PRIOR CT 05-21-19 COMPARISON: CT CT CERVICAL SPINE WO CON from 05/21/2019 TECHNIQUE: Standard multiplanar multiecho sequences are performed without contrast. 3-D MIP and myelographic images are also rendered and reviewed FINDINGS: There is normal alignment. The craniocervical junction has an unremarkable appearance. C2-C3: Unremarkable. C3-C4: Degenerative disc disease with bulging disc and broad-based central disc protrusion which is partially calcified on the previous CT scan. This is causing severe canal stenosis of 7 mm with impingement upon the cord and cord flattening. There is severe bilateral lateral recess narrowing and bilateral foraminal narrowing. C4-C5: Degenerative disc disease with broad-based disc bulge and ridging of the endplates with severe canal stenosis of 7 mm with impingement upon the anterior aspect of the cord with cord flattening and severe bilateral lateral recess and foraminal narrowing. C5-C6: Degenerative disc disease with bulging disc with facet and ligamentum hypertrophy with canal stenosis of 10 mm with mild impingement upon the anterior aspect of the cord and with severe bilateral foraminal narrowing C6-C7: Degenerative disc disease with bulging disc with mild impingement upon the anterior aspect of the cord with mild contour deformity. There is moderate right and mild left foraminal narrowing. C7-T1: Unremarkable. No extruded herniated disc is evident. IMPRESSION: 1. C3-C4: Degenerative disc disease with bulging disc and broad-based central disc protrusion which is partially calcified on the previous CT scan. This is causing severe canal stenosis of 7 mm with impingement upon the cord and cord flattening. There is severe bilateral lateral recess narrowing and bilateral foraminal narrowing. 2. C4-C5: Degenerative disc disease with broad-based disc bulge and ridging of the endplates with severe canal stenosis of 7 mm with impingement upon the anterior aspect of the cord with cord flattening and severe bilateral lateral recess and foraminal narrowing. 3. C5-C6: Degenerative disc disease with bulging disc with facet and ligamentum hypertrophy with canal stenosis of 10 mm with mild impingement upon the anterior aspect of the cord and with severe bilateral foraminal narrowing 4. C6-C7: Degenerative disc disease with bulging disc with mild impingement upon the anterior aspect of the cord with mild contour deformity. There is moderate right and mild left foraminal narrowing Dictated by: Marquis Zavala MD 02/02/2020 12:05 Marquis Zavala MD in [facility] 02/02/2020 12:05
--- NOTE | 2020-02-01 15:10 | CT_ITS ---
PROCEDURE: CT ABDOMEN PELVIS WO CON CLINICAL INDICATION: Kidney stones H/o stones, c/o lt flank pain COMPARISON: CT ABDWO CT ABD W/O CONT(RENAL ST.orAPP from 10/08/[address] ABDOMEN PELVIS W CON from 05/21/[address] ANGIO CHEST from 05/21/2019 TECHNIQUE: Axial images obtained with sagittal and coronal reformats. All CT scans at the facility use one or more dose reduction, viz: automated exposure control, ma/kV adjustment per patient size (including targeted exams where dose is matched to indication, i.e. head), or iterative reconstruction technique. FINDINGS: LOWER THORAX: No acute finding ABDOMEN & PELVIS: There is a hypodensity in the hepatic dome posteriorly on the right which measures 13 by 7 mm. This may represent a hepatic cyst and slightly larger compared to 05/21/2019 at that time measuring 10 mm however, that study was performed with contrast only. The remaining liver has an unremarkable appearance. The spleen, adrenal glands, pancreas, and gallbladder have an unremarkable appearance. There is no evidence of appendicitis. There is a small appendicoliths present. No renal or ureteral calculi. No hydronephrosis. No urinary bladder calculi. Urinary bladder wall slightly thickened but could be due to the nondistention. No intestinal obstruction or free air. No pelvic mass or abnormal fluid collection. Coarse prostate calcifications are present Postsurgical changes of the lumbar spine with inter pedicular screws at L5 and S1. IMPRESSION: 1. No acute abdominal or pelvic findings. 2. Hypodense right hepatic lobe lesion slightly larger which may represent an enlarging cyst.. Stability may be confirmed with follow-up. 3. No renal or ureteral calculi. 4. Mild thickening of the urinary bladder which could be due to nondistention or mild cystitis. Dictated by: Marquis Zavala MD 02/02/2020 10:58 Marquis Zavala MD in [facility] 02/02/2020 10:58
== END ==
PROVIDERS: PCP Physician Assistant; Visit Provider Physician Assistant
DX: M54.2 Cervicalgia (principal); M79.2 Neuralgia and neuritis, unspecified; N20.0 Calculus of kidney
CPT/HCPCS: 72141; 74176; 76376

== ENCOUNTER → 2020-02-23 10:21 | Outpatient (CLI) | payer MEDICAID, SELFPAY ==
[2020-02-23 11:37] LABS: Prostate Specific Ag Screen 0.8 ng/ml (0.0-4.0)
== END ==
PROVIDERS: Visit Provider Urology
DX: Z12.5 Encounter for screening for malignant neoplasm of prostate (principal)
CPT/HCPCS: 36415; G0103

== ENCOUNTER → 2020-03-03 09:55 | Outpatient (CLI) | payer MEDICAID, SELFPAY ==
[2020-03-03 11:40] LABS: Coronavirus 19 IgG Antibody Negative (Negative); Coronavirus 19 IgM Antibody Negative (Negative)
== END ==
PROVIDERS: Visit Provider Urology
DX: Z03.818 Encounter for observation for suspected exposure to other biological agents ruled out (principal); R31.9 Hematuria, unspecified
CPT/HCPCS: 36415; 86328

== ENCOUNTER 2020-03-05 10:14 | Day surgery (SDC) | payer MEDICAID, SELFPAY ==
[2020-03-02 15:02] VITALS: BMI 26.6
[2020-03-05 10:29] VITALS: BP 160/76; PULSE 70; RESP 18; TEMP 36.7; O2SAT 100
[2020-03-05 11:22] VITALS: BP 131/75; PULSE 65; RESP 16; TEMP 36.5; O2SAT 99
--- NOTE | 2020-03-05 12:18 | HMH.OPNOTE ---
Date of procedure: 03/05/20 Pre-op Diagnosis:: Microhematuria Post-op Diagnosis:: Microhematuria Procedure performed:: Cystoscopy Surgeon:: Roberto Easley MD Anesthesia: local Estimated blood loss (mL): 0 Clinical Note:: 55-year-old white male with some microscopic hematuria. CT scan showed some mild bladder wall thickening. He presents for urologic evaluation. Operative findings:: No evidence of mucosal abnormalities, stones, trabeculation or other pathology. Operative note:: Patient taken to the treatment room after informed consent was obtained. He was prepped and draped in the standard surgical fashion on the stretcher. 2% lidocaine placed into the urethra and the urethra clamped for 5 minutes. After 5 minutes the clamp removed and the flexible cystoscope introduced into the urethral meatus. Passed to the prostatic urethra with there was some moderate hyperplasia present. The bladder was entered and examined in a systematic fashion. Was mild trabeculation present but no evidence of mucosal abnormalities, stones or diverticula. The ureteral orifices were somewhat obscured but were visible. Clear efflux of urine was noted from each. Scope was retroflexed showing a moderate sized median lobe. Scope then removed. Patient tolerated procedure well. We discussed the findings today and he was reassured there is no evidence of any abnormalities. Patient will continue tamsulosin for his BPH symptoms. Condition: stable Disposition: same day Specimens:: None Complications:: None
== END 2020-03-05 11:31 | disposition home or self-care (01) ==
LOC: OUTP 10:15
PROVIDERS: PCP Physician Assistant; Visit Provider Urology
PROC: (CPT 52000; principal; 2020-03-05 11:00)
DX: R31.9 Hematuria, unspecified (principal); E78.5 Hyperlipidemia, unspecified; I10 Essential (primary) hypertension; M19.90 Unspecified osteoarthritis, unspecified site; Z90.49 Acquired absence of other specified parts of digestive tract; Z87.39 Personal history of other diseases of the musculoskeletal system and connective tissue; F12.90 Cannabis use, unspecified, uncomplicated; Z83.3 Family history of diabetes mellitus; Z80.9 Family history of malignant neoplasm, unspecified; Z82.49 Family history of ischemic heart disease and other diseases of the circulatory system; Z88.1 Allergy status to other antibiotic agents; Z79.899 Other long term (current) drug therapy
CPT/HCPCS: 52000

== ENCOUNTER 2020-04-02 15:00 | Outpatient (RCR) | payer MEDICAID, SELFPAY | END 2020-04-16 13:00 | disposition home or self-care (01) | LOC: PT.CARL 15:00 | PROVIDERS: Visit Provider Neurological Surgery | DX: M54.2 Cervicalgia; M54.6 Pain in thoracic spine; G89.29 Other chronic pain; Z98.1 Arthrodesis status | CPT/HCPCS: 97110; 97163 ==

== ENCOUNTER → 2020-07-04 14:01 | Outpatient (CLI) | payer MEDICAID, SELFPAY ==
[2020-07-04 14:22] LABS: Basophils # 0.1 K/mm3 (0-0.2); Basophils % 0.6 % (0.1-2.0); Eosinophils # 0.4 K/mm3 (0.0-0.4); Eosinophils % 5.1 % (0.1-12.0); Hematocrit 46.3 % (42.0-52.0); Hemoglobin 15.8 g/dL (14.1-18.0); Lymphocytes # 3.2 K/mm3 (0.7-4.5); Mean Corpuscular HGB Conc 34.2 g/dL (31.8-35.4); Mean Corpuscular Volume 93.6 fl (80-94); Mean Platelet Volume 8.9 fl (7.4-10.4); Monocytes # 0.8 K/mm3 (0.1-1.0); Monocytes % 9.6 % (1.7-9.3); Neutrophils # 3.6 K/mm3 (1.8-7.8); Neutrophils % 44.6 % (37.0-80.0); Platelet Count 273 K/mm3 (142-424); Red Blood Count 4.94 M/mm3 (4.60-6.20); Red Cell Distribution Width 13.1 % (11.5-17.5)
[2020-07-04 15:34] LABS: Alanine Aminotransferase 24 U/L (12-78); Albumin Level 4.7 g/dl (3.5-5.0); Albumin/Globulin Ratio 1.7 (1.1-1.8); Alkaline Phosphatase 99 U/L (38-126); Anion Gap 13.7 mEq/L (5-15); Aspartate Amino Transferase 37 U/L (17-59); Bilirubin,Total 0.5 mg/dl (0.2-1.3); Blood Urea Nitrogen 12 mg/dl (9-20); Calcium 9.8 mg/dl (8.4-10.2); Carbon Dioxide 29 mmol/L (22.0-30.0); Chloride 102 mmol/L (98-107); Chol/HDL Ratio 4.5 (1-3.5); Cholesterol 191 mg/dl (140-200); Estimated Glomerular Filt Rate 100 ml/min (>60); GFR (African American) 121 ML/MIN (>60); Globulin 2.7 g/dL (1.3-3.2); Glucose 74 mg/dl (74-100); HDL Cholesterol 42 mg/dl (40-60); Potassium 4.7 mmoL/L (3.5-5.1); Sodium 140 mmol/L (136-145); Total Protein,Serum 7.4 g/dl (6.3-8.2); Triglycerides 237 mg/dl (30-150); VLDL Cholesterol 47 mg/dL (0-40)
[2020-07-04 15:46] LABS: Direct LDL Cholesterol 97.67 mg/dL (100-129)
[2020-07-04 15:50] LABS: Free T4 (Free Thyroxine) 1.07 ng/dl (0.78-2.19)
[2020-07-04 15:51] LABS: 25-OH Vitamin D, Total 26.5 ng/mL (30-100)
[2020-07-04 16:05] LABS: Thyroid Stimulating Hormone 1.18 uIU/mL (0.465-4.68)
== END ==
PROVIDERS: Visit Provider Physician Assistant
DX: R53.83 Other fatigue (principal); E78.5 Hyperlipidemia, unspecified; E55.9 Vitamin D deficiency, unspecified
CPT/HCPCS: 80053; 80061; 82306; 84439; 84443; 85025

== ENCOUNTER → 2020-10-23 09:52 | Outpatient (CLI) | payer MEDICAID, SELFPAY ==
--- NOTE | 2020-10-23 09:55 | XR_ITS ---
PROCEDURE: XR KNEE RT 4V CLINICAL INDICATION: right knee pain COMPARISON: CR [id number] XR knee RT 3V from 07/06/2018 FINDINGS: No acute fractures or dislocations. Bone density is normal. The joint spaces are maintained. Small suprapatellar joint effusion. Minor degenerative changes of the knee joint are noted. Chondrocalcinosis noted in the medial compartment. IMPRESSION: No acute fractures or dislocations. Dictated by: Luz Del Rio 10/23/2020 12:08 Luz Del Rio in [facility] 10/23/2020 12:08
== END ==
PROVIDERS: PCP Physician Assistant; Visit Provider Physician Assistant
DX: M25.561 Pain in right knee (principal)
CPT/HCPCS: 73564

== ENCOUNTER 2020-11-28 10:00 | Outpatient (RCR) | payer MEDICAID, SELFPAY ==
--- NOTE | 2020-10-25 11:23 | HMH.PTOPEV ---
PT Outpatient Evaluation Rehab PT Outpatient Evaluation Start: 10/25/20 10:52 Freq: Status: Active Protocol: Document 10/25/20 10:52 FRANCESCO (Rec: 10/25/20 11:22 FRANCESCO [id number]) Electronically Signed By Isaías Juárez, BOLIVAR 10/25/20 10:52 Outpatient Therapy Subjective History Subjective History Pt. is a 55 year old male who presents to outpatient PT clinic w/ complaints of chronic and constant RLE knee P! of traumatic onset since May 2020. Pt. reports he was ambulating on ice when the ice broke through and the pt. fell backwards feeling a sharp P! in his knee. Pt. also c/o RLE calf P! w/ prolonged ambulation, states I can feel the nerve just popping out of my leg. Pt. reports symptoms worsen w/ prolonged ambulation, standing, and vehicle transfers that restrict ADLs. Pt. reports having some symptom relief w/ MHP and rest. Recent diagnostic imaging(X-ray) positive for minor degenerative changes and chondrocalcinosis in the medial compartment. Pt. denies having injections for current pathology. Current medications include Lortab, Gabapentin, Simvastatin, and Tamsulosin. PMH includes Hyperlipidemia, Hypertension, hx. of c diff, lumbar fusion at L3/L4, Appendectomy, and a Herniorrhaphy. Chief Complaint Pain,Stiff,Clicks,Swelling, Paresthesia,Weakness Symptom Type Ache,Sharp,Dull,Numbness Symptoms Relieved By Heat,Prescription Meds Symptoms Aggravated By Standing,Physical Activity, Twisting,Walking Prior Functional Limitations None Current Functional Limitations Lifting,Housework,Dressing, Driving,Sleeping,Standing, Squatting,Recreation Activity, Walking,Stairs Symptom Description
== END 2020-11-28 11:00 | disposition home or self-care (01) ==
LOC: PT.CARL 10:00
PROVIDERS: PCP Physician Assistant; Visit Provider Physician Assistant
DX: M25.561 Pain in right knee (principal)
CPT/HCPCS: 97010; 97014; 97110; 97163; G0283

== ENCOUNTER → 2020-12-18 08:21 | Outpatient (CLI) | payer MEDICAID, SELFPAY ==
--- NOTE | 2020-12-18 08:21 | US_ITS ---
PROCEDURE: US ABDOMEN COMPLETE CLINICAL INDICATION: epigastric pain, postprandial nausea COMPARISON: No exams were available for comparison FINDINGS: PANCREAS: Unremarkable. No obvious mass or abnormal fluid collection. No ductal dilatation LIVER: No focal liver lesions demonstrated. Homogeneous echogenicity. No intrahepatic biliary ductal dilatation evident. There is appropriate direction of blood flow within a non dilated portal vein RIGHT KIDNEY: Unremarkable. Normal size and echogenicity. No hydronephrosis LEFT KIDNEY: Unremarkable. Normal size and echogenicity. No hydronephrosis GALLBLADDER: No gallstones, gallbladder wall thickening, pericholecystic fluid, or biliary dilatation. AORTA: No evidence of aneurysmal dilatation. SPLEEN: Unremarkable. Normal size and echogenicity ASCITES: None demonstrated. IMPRESSION: No acute findings Dictated by: Marquis Zavala MD 12/18/2020 17:06 Marquis Zavala MD in [facility] 12/18/2020 17:06
== END ==
PROVIDERS: PCP Physician Assistant; Visit Provider Physician Assistant
DX: R10.13 Epigastric pain (principal); R11.0 Nausea
CPT/HCPCS: 76700

== ENCOUNTER → 2020-12-20 13:45 | Outpatient (CLI) | payer MEDICAID, SELFPAY ==
[2020-12-20 14:31] LABS: Basophils % 0.4 % (0.1-2.0); Eosinophils # 0.5 K/mm3 (0.0-0.4); Eosinophils % 6.2 % (0.1-12.0); Hematocrit 38.5 % (42.0-52.0); Hemoglobin 13.6 g/dL (14.1-18.0); Lymphocytes # 2.8 K/mm3 (0.7-4.5); Lymphocytes % 34.4 % (10-50); Mean Corpuscular HGB Conc 35.3 g/dL (31.8-35.4); Mean Corpuscular Volume 90.6 fl (80-94); Mean Platelet Volume 7.1 fl (7.4-10.4); Monocytes # 0.7 K/mm3 (0.1-1.0); Monocytes % 8.2 % (1.7-9.3); Neutrophils # 4.1 K/mm3 (1.8-7.8); Neutrophils % 50.8 % (37.0-80.0); Platelet Count 227 K/mm3 (142-424); Red Blood Count 4.25 M/mm3 (4.60-6.20); Red Cell Distribution Width 13.1 % (11.5-17.5)
[2020-12-20 15:10] LABS: Alanine Aminotransferase 14 U/L (12-78); Albumin Level 4.1 g/dl (3.5-5.0); Albumin/Globulin Ratio 1.8 (1.1-1.8); Alkaline Phosphatase 80 U/L (38-126); Amylase 65 U/L (30-110); Anion Gap 12.3 mEq/L (5-15); Aspartate Amino Transferase 25 U/L (17-59); Bilirubin,Total 0.4 mg/dl (0.2-1.3); Blood Urea Nitrogen 10 mg/dl (9-20); Calcium 9.2 mg/dl (8.4-10.2); Carbon Dioxide 29 mmol/L (22.0-30.0); Chloride 104 mmol/L (98-107); Chol/HDL Ratio 3.7 (1-3.5); Cholesterol 140 mg/dl (140-200); Estimated Glomerular Filt Rate 87 ml/min (>60); GFR (African American) 105 ML/MIN (>60); Globulin 2.3 g/dL (1.3-3.2); Glucose 113 mg/dl (74-100); HDL Cholesterol 38 mg/dl (40-60); Lipase 100 U/L (23-300); Potassium 4.3 mmoL/L (3.5-5.1); Sodium 141 mmol/L (136-145); Total Protein,Serum 6.4 g/dl (6.3-8.2); Triglycerides 197 mg/dl (30-150); VLDL Cholesterol 39 mg/dL (0-40)
[2020-12-20 15:40] LABS: Thyroid Stimulating Hormone 1.12 uIU/mL (0.465-4.68)
[2020-12-24 07:07] LABS: H. pylori Breath Test Negative (Negative)
== END ==
PROVIDERS: Visit Provider Physician Assistant
DX: R10.13 Epigastric pain (principal); R11.0 Nausea
CPT/HCPCS: 36415; 80053; 80061; 82150; 83013; 83690; 84443; 85025

== ENCOUNTER → 2021-01-01 13:22 | Outpatient (CLI) | payer MEDICAID, SELFPAY | PROVIDERS: Visit Provider Surgery | DX: Z01.812 Encounter for preprocedural laboratory examination (principal); Z11.52 Encounter for screening for COVID-19; Z13.810 Encounter for screening for upper gastrointestinal disorder; Z12.11 Encounter for screening for malignant neoplasm of colon | CPT/HCPCS: U0003 ==

== ENCOUNTER 2021-01-03 07:28 | Day surgery (SDC) | payer MEDICAID, SELFPAY ==
[2021-01-01 08:52] VITALS: BMI 24.9
[2021-01-03] VITALS (7 sets, daily range): BP systolic 79–127; BP diastolic 50–63; PULSE 52–74; RESP 16–18; TEMP 36.3–36.4; O2SAT 95–98
--- NOTE | 2021-01-03 08:09 | HMH.ANESCL ---
[facility] Anesthesia Checklist - Patient Identification Patient Identification: Arm Band - Structural Data Admitted From: Home Planned Operative Procedure/s: EGD/Colonoscopy Consent for Planned Operative Procedure(s) Verified: Yes - NPO Status Verified Time NPO: 00:00 - Additional verifications Anesthesia Reactions: No Hx Blood Transfusions: No - Airway Assessment C-Spine Mobility Assessed: Yes TMJ Mobility Assessed: Yes Dentition: Good Dentition - Neurological Assessment Level of Consciousness: Awake Hx Seizures: No Numbness or tingling in extremities: No - Anesthesia Plan Anesthesia Risk discussed: Yes Anesthesia Plan: Verified ASA Class: II Anesthesia Type: MAC [facility] History Medical History: Reports:: Anxiety, Depression, Hyperlipidemia, Hypertension Denies:: Cancer, Diabetes Mellitus Type 1, Diabetes Mellitus Type 2, Internal Pacemaker, MRSA, Seizures *Have you ever received a pneumonia vaccine?: Yes *Have you received a flu vaccine this season?: No Other Medical History: Reports: Arthritis, Other Anesthesia experience/problems:: None Other Surgeries: Yes: No Previous Surgery, Appendectomy, Cancer Surgery, Hernia Repair, Other. No: Pacemaker Amputation: No Fractures: No - *Social History Last grade of school completed: High school graduate Smoking Status: Current every day smoker Tobacco Type: smokeless tobacco # Packs/Day (cigarettes): 1 Alcohol Intake: never Alcohol Intake Frequency:: holidays/special occasions only Substance Use Type: marijuana *Occupational Status:: disabled Housing: house Household Members: none *Travel in the last 8 weeks: None - Psychiatric History Pschychiatric History:: Reports:: Anxiety, Depression Family Hx:: Cancer
--- NOTE | 2021-01-03 10:11 | HMH.SCOPE ---
- Procedure: Date: 01/03/21 Patient Date of :: 1965 Procedure Performed:: Esophagogastroduodenoscopy with biopsy Colonoscopy Indications:: Upper abdominal pain Nausea Screening colonoscopy Performing Provider:: German Haney MD Referring Provider:: . Sedation:: Monitored anesthesia care Procedure:: After informed consent was obtained the patient was taken to the endoscopy suite. Sedation ensued after the patient was transferred to the left lateral decubitus position. Pulse, blood pressure, and oxygen saturation were monitored throughout the procedure. The endoscope was advanced beyond the duodenal bulb. Retroflexion within the gastric lumen was accomplished. The gastroscope was carefully removed. Digital rectal exam revealed no significant abnormality. The colonoscope was placed in position. The entire colon was evaluated. The colonoscope was carefully removed and the patient was transferred to recovery in stable condition. Please see findings and specimens below for detail. Findings:: Gastroesophageal junction at 41 cm Patchy gastritis Bowel preparation fair to moderate Fairly significant spasticity/lack of relaxation Hemorrhoidal cushions Specimens:: Antral biopsy Recommendations:: Follow-up pathology Repeat colonoscopy in 3-5 years secondary to fair to moderate preparation, spasticity, and lack of relaxation. Complications:: No immediate Estimated blood obtained (mL): 1
== END 2021-01-03 11:05 | disposition home or self-care (01) ==
LOC: OUTP 07:30
PROVIDERS: PCP Physician Assistant; Visit Provider Surgery
PROC: 0DJ08ZZ Inspection of Upper Intestinal Tract, Via Natural or Artificial Opening Endoscopic (ICD-10-PCS; CPT 43235; principal; 2021-01-03 08:30)
DX: Z12.11 Encounter for screening for malignant neoplasm of colon (principal); K29.60 Other gastritis without bleeding; K58.9 Irritable bowel syndrome, unspecified; K64.0 First degree hemorrhoids; E78.5 Hyperlipidemia, unspecified; I10 Essential (primary) hypertension; F41.9 Anxiety disorder, unspecified; F32.9 Major depressive disorder, single episode, unspecified; M19.90 Unspecified osteoarthritis, unspecified site; Z90.49 Acquired absence of other specified parts of digestive tract; Z72.0 Tobacco use; Z80.9 Family history of malignant neoplasm, unspecified
CPT/HCPCS: 43239; 45378

== ENCOUNTER → 2021-01-10 14:21 | Outpatient (CLI) | payer MEDICAID, SELFPAY ==
--- NOTE | 2021-01-10 14:22 | CT_ITS ---
PROCEDURE: CT ABDOMEN PELVIS WO CON CLINICAL INDICATION: abd pain COMPARISON: CT CT ABDOMEN PELVIS WO CON from 02/01/2020 TECHNIQUE: Axial images obtained with sagittal and coronal reformats. All CT scans at the facility use one or more dose reduction, viz: automated exposure control, ma/kV adjustment per patient size (including targeted exams where dose is matched to indication, i.e. head), or iterative reconstruction technique. FINDINGS: LOWER THORAX: No acute finding ABDOMEN & PELVIS: No change 1.5 cm hypodensity right hepatic lobe segment 7 which may represent a hepatic cyst. The spleen, adrenal glands, and pancreas have an unremarkable appearance. No renal or ureteral calculi. No hydronephrosis. There are small retroperitoneal and peritoneal lymph nodes present which appears stable. No evidence of appendicitis. There is a small appendicoliths at the tip of the appendix. No intestinal obstruction or free air. No evidence diverticulitis. No pelvic mass or abnormal fluid collection. There is coarse central prostate calcification noted. Inter pedicular screws are present at L5-S1. No acute bony findings. IMPRESSION: No acute finding Dictated by: Marquis Zavala MD 01/10/2021 16:34 Marquis Zavala MD in [facility] 01/10/2021 16:34
== END ==
PROVIDERS: PCP Physician Assistant; Visit Provider Physician Assistant
DX: R10.9 Unspecified abdominal pain (principal); R11.0 Nausea; R63.4 Abnormal weight loss
CPT/HCPCS: 74176

== ENCOUNTER → 2021-01-14 09:54 | Outpatient (CLI) | payer MEDICAID, SELFPAY ==
--- NOTE | 2021-01-14 09:54 | NM_ITS ---
PROCEDURE: NM GASTRIC EMPTYING STUDY CLINICAL INDICATION: abdominal pain COMPARISON: No exams were available for comparison FINDINGS: Dose: 0.54 mCi technetium sulfur colloid mixed in radial labeled meal. 1/2 emptying time is 94 minutes very slightly prolonged with normal 60+/-30 minutes. No obvious reflux on the images submitted IMPRESSION: Minimally prolonged gastric emptying Dictated by: Marquis Zavala MD 01/14/2021 17:49 Marquis Zavala MD in [facility] 01/14/2021 17:49
--- NOTE | 2021-01-14 10:09 | HMH.ITSHM ---
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 []PREGABALIN ONDANSETRON LISINOPRIL ATORVASTATIN TAMSULOSIN OMEPRAZOLE VITAMIN D2 CYCLOBENZAPRINE
== END ==
PROVIDERS: PCP Physician Assistant; Visit Provider Surgery
DX: R10.9 Unspecified abdominal pain (principal); R11.0 Nausea
CPT/HCPCS: 78264; A9541

== ENCOUNTER → 2021-01-17 08:42 | Outpatient (CLI) | payer MEDICAID, SELFPAY ==
--- NOTE | 2021-01-17 08:46 | FL_ITS ---
PROCEDURE: FL UPPER GI SMALL BOWEL CLINICAL INDICATION: abdominal pain COMPARISON: CT CT ABDOMEN PELVIS WO CON from 01/10/2021 FINDINGS: Fluoroscopy time: 3 minutes and 7 seconds. Line Service Technician exam shows mild amount of retained colonic feces. Inter pedicular screws are present at L5-S1 with minimal lumbar curvature convex left. Study is somewhat limited as the patient was not able to drink a large volume of contrast. The esophagus stomach and duodenum have a unremarkable appearance. The small bowel is visualized throughout its course. No areas of obstruction mucosal abnormalities or mass apparent. The appendix did fill with contrast. IMPRESSION: Unremarkable upper GI with small-bowel follow-through Dictated by: Marquis Zavala MD 01/17/2021 11:58 Marquis Zavala MD in [facility] 01/17/2021 11:58
== END ==
PROVIDERS: PCP Physician Assistant; Visit Provider Surgery
DX: R11.0 Nausea (principal); R10.9 Unspecified abdominal pain
CPT/HCPCS: 74246; 74248

== ENCOUNTER → 2021-07-29 16:00 | Outpatient (CLI) | payer MEDICARE, MEDICAID, SELFPAY ==
[2021-07-29 13:33] LABS: Basophils # 0.1 K/mm3 (0-0.2); Basophils % 0.8 % (0.1-2.0); Eosinophils # 0.4 K/mm3 (0.0-0.4); Hematocrit 46.2 % (42.0-52.0); Hemoglobin 15.2 g/dL (14.1-18.0); Lymphocytes # 2.9 K/mm3 (0.7-4.5); Lymphocytes % 36.9 % (10-50); Mean Corpuscular HGB Conc 32.9 g/dL (31.8-35.4); Mean Corpuscular Hemoglobin 31.8 pg (27.0-31.2); Mean Corpuscular Volume 96.9 fl (80-94); Mean Platelet Volume 8.4 fl (7.4-10.4); Monocytes # 0.6 K/mm3 (0.1-1.0); Monocytes % 7.8 % (1.7-9.3); Neutrophils # 3.9 K/mm3 (1.8-7.8); Neutrophils % 49.5 % (37.0-80.0); Platelet Count 274 K/mm3 (142-424); Red Blood Count 4.77 M/mm3 (4.60-6.20); Red Cell Distribution Width 12.6 % (11.5-17.5); White Blood Count 7.9 K/mm3 (4.8-10.8)
[2021-07-29 13:41] LABS: Alanine Aminotransferase 20 U/L (12-78); Albumin Level 4.7 g/dl (3.5-5.0); Albumin/Globulin Ratio 1.8 (1.1-1.8); Alkaline Phosphatase 109 U/L (38-126); Anion Gap 12.5 mEq/L (5-15); Aspartate Amino Transferase 37 U/L (17-59); Bilirubin,Total 0.6 mg/dl (0.2-1.3); Blood Urea Nitrogen 11 mg/dl (9-20); Calcium 9.5 mg/dl (8.4-10.2); Carbon Dioxide 27 mmol/L (22.0-30.0); Chloride 104 mmol/L (98-107); Chol/HDL Ratio 4.5 (1-3.5); Cholesterol 165 mg/dl (140-200); Estimated Glomerular Filt Rate 116 ml/min (>60); GFR (African American) 140 ML/MIN (>60); Globulin 2.6 g/dL (1.3-3.2); Glucose 117 mg/dl (74-100); HDL Cholesterol 37 mg/dl (40-60); Potassium 4.5 mmoL/L (3.5-5.1); Sodium 139 mmol/L (136-145); Total Protein,Serum 7.3 g/dl (6.3-8.2); Triglycerides 247 mg/dl (30-150); VLDL Cholesterol 49 mg/dL (0-40)
[2021-07-29 13:52] LABS: Direct LDL Cholesterol 66.71 mg/dL (100-129)
[2021-07-29 14:13] LABS: Prostate Specific Ag Screen 0.6 ng/ml (0.0-4.0); Thyroid Stimulating Hormone 1.22 uIU/mL (0.465-4.68)
[2021-07-29 14:14] LABS: 25-OH Vitamin D, Total 33.7 ng/mL (30-100)
[2021-07-29 14:31] LABS: Barbiturates Screen,Urine Negative ng/ml (<200)
[2021-07-29 14:32] LABS: Benzodiazepines Screen,Urine Negative ng/ml (<200)
[2021-07-29 14:33] LABS: Amphetamine/Metha Screen,Urine Negative ng/ml (<1000); Methadone Screen,Urine Negative ng/ml (<300)
[2021-07-29 14:34] LABS: Cannabinoid Screen,Urine Positive ng/ml (<50); Cocaine Screen,Urine Negative ng/ml (<300)
[2021-07-29 14:36] LABS: Opiate Screen,Urine Positive ng/ml (<300); Phencyclidine Screen,Urine Negative ng/ml (<25)
== END ==
PROVIDERS: Visit Provider Physician Assistant
DX: I10 Essential (primary) hypertension (principal); E78.5 Hyperlipidemia, unspecified; R73.09 Other abnormal glucose; Z98.890 Other specified postprocedural states; Z12.5 Encounter for screening for malignant neoplasm of prostate; Z79.899 Other long term (current) drug therapy
CPT/HCPCS: 80053; 80061; 80305; 82306; 83036; 84443; 85025; G0103

== ENCOUNTER 2022-03-31 11:00 | Outpatient (RCR) | payer MEDICARE, MEDICAID, SELFPAY ==
--- NOTE | 2022-03-13 15:44 | HMH.PTOPEV ---
PT Outpatient Evaluation Rehab PT Outpatient Evaluation Start: 03/13/22 13:55 Freq: Status: Active Protocol: Document 03/13/22 13:55 FRANCESCO (Rec: 03/13/22 15:44 PDESEROUX [id number]) E-signed By Isaías Juárez, PT Outpatient Therapy Subjective History Subjective History Pt. is a 57 year old male who presents to [facility] Outpatient Physical Therapy Services in [place] for the initial evaluation this date( 03/13/22) w/ c/o chronic and intermittent cervical and BUE( R>L) mechanical P!, neuralgia, and ROM deficits since November 2021. Pt. reports reaching and turning a doorknob to open a door(w/ RUE) when he experienced a shooting needle -like sensation from the RUE elbow to the 4th digit. Pt. reports symptoms improved w/ prescribed Prednisone, however , symptoms began to return after he finished the pack. Pt . 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 Pt. reports having some symptom relief w/ resting. Pt. denies having any recent diagnostic imaging nor injections for current complaint. Pt. reports having intermittent needle- like sensation in bilateral 4th digits. Pt. also c/o being unable to flex/extend RUE elbow fully secondary to a tightness. Pt. denies history of pacemaker, denies history of cancer(self), denies history of diabetes, denies latex allergy, reports medicational allergy to Amoxycillin. Current medications include Lortab and Gabapentin. PMH includes lumbar spinal surgeries x 3, Appendectomy. Chief Complaint Pain,Stiff,Catches/Locks,
== END 2022-05-05 13:30 | disposition home or self-care (01) ==
LOC: PT.CARL 11:00
PROVIDERS: PCP Physician Assistant; Visit Provider Nurse Practitioner Family
DX: M54.12 Radiculopathy, cervical region (principal); M25.521 Pain in right elbow
CPT/HCPCS: 97010; 97014; 97035; 97110; 97140; 97163; G0283

== ENCOUNTER → 2022-04-09 14:57 | Outpatient (CLI) | payer MEDICARE, MEDICAID, SELFPAY ==
--- NOTE | 2022-04-09 14:57 | MR_ITS ---
FINAL REPORT CLINICAL HISTORY: neck pain with radicular symptoms FINDINGS: Multiplanar MR imaging of the cervical spine was performed without contrast. On the sagittal T2-weighted images, disc degeneration is seen throughout. There are endplate changes at multiple levels. There is no evidence of fracture. There is mild retrolisthesis of C3 on C4. The cervical spinal cord has an unremarkable appearance without evidence of mass, edema or syrinx. The cervicomedullary junction is normal. C2-3: There is a small right paracentral disc protrusion. There is no significant canal stenosis or neural foraminal narrowing. C3-4: There is a disc osteophyte complex. There is severe right and moderate left neural foraminal narrowing. There is mild central canal stenosis with an AP thecal sac diameter of 8 mm. C4-5: There is a disc osteophyte complex. There is severe bilateral neural foraminal narrowing. There is mild central canal stenosis with an AP thecal sac diameter of 8 mm. C5-6: There is a disc osteophyte complex. There is severe bilateral neural foraminal narrowing. There is mild central canal stenosis with an AP thecal sac diameter of 9 mm. C6-7: There is a disc osteophyte complex. There is severe bilateral neural foraminal narrowing. There is mild central canal stenosis with an AP thecal sac diameter of 9 mm. C7-T1: There is no significant canal stenosis or neural foraminal narrowing. IMPRESSION: Multilevel degenerative disc disease with areas of neural foraminal narrowing and central canal stenosis. Small right paracentral disc protrusion at C2-C3. Reviewed, Interpreted and Dictated by Mario Hess III, MD Transcribed by Deni Carreon Authenticated and [facility]
--- NOTE | 2022-04-09 14:57 | MR_ITS ---
PROCEDURE INFORMATION: Exam: MR Thoracic Spine Without Contrast Exam date and time: 04/09/2022 3:25 PM Age: 57 years old Clinical indication: Pain in thoracic spine; Additional info: Neck and back pain. Bilateral scapula and arm pain worse on right side. Headache. TECHNIQUE: Imaging protocol: Magnetic resonance imaging of the thoracic spine without contrast. COMPARISON: MR THORACIC SPINE WO CON 08/10/2019 1:36 PM FINDINGS: alignment is grossly normal. conus terminates at the mid aspect of L1. Soft tissues are unremarkable. No subluxation-no perched or jumped facets. The facets are without acute process. The signal intensity within the bone marrow is mildly heterogeneous. No marrow edema of significance. Minimal reactive edema inferior endplate T8 T1-T2: No significant spinal canal stenosis. T2-T3: No significant spinal canal stenosis. T3-T4: No significant spinal canal stenosis. T4-T5: No significant spinal canal stenosis. T5-T6: No significant spinal canal stenosis. T6-T7: No significant spinal canal stenosis. T7-T8: No significant spinal canal stenosis. T8-T9: No significant spinal canal stenosis. T9-T10: No significant spinal canal stenosis. T10-T11: No significant spinal canal stenosis. T11-T12: No significant spinal canal stenosis. IMPRESSION: Minimal degenerative disc disease. Central canal widely patent.
== END ==
PROVIDERS: PCP Physician Assistant; Visit Provider Physician Assistant
DX: M51.34 Other intervertebral disc degeneration, thoracic region (principal); M50.20 Other cervical disc displacement, unspecified cervical region
CPT/HCPCS: 72141; 72146; 76376

== ENCOUNTER → 2022-11-07 14:26 | Outpatient (CLI) | payer MEDICARE, MEDICAID, SELFPAY ==
--- NOTE | 2022-11-07 14:33 | XR_ITS ---
FINAL REPORT CLINICAL HISTORY: right elbow pain FINDINGS: Right elbow Three views were obtained. There is no acute fracture or dislocation. There are mild degenerative changes. No joint effusion is identified. No soft tissue abnormality is identified. IMPRESSION: No acute process. Reviewed, Interpreted and Dictated by Mario Hess III, MD Transcribed by Anum Schwarz Authenticated and [facility]
--- NOTE | 2022-11-07 14:33 | XR_ITS ---
FINAL REPORT CLINICAL HISTORY: left elbow pain FINDINGS: Left elbow Three views were obtained. There is no acute fracture or dislocation. There are mild degenerative changes. There is a small calcification posterior to the olecranon. No acute soft tissue abnormality is identified. There is no joint effusion. IMPRESSION: No acute process. Reviewed, Interpreted and Dictated by Mario Hess III, MD Transcribed by Anum Schwarz Authenticated and . [facility]
== END ==
PROVIDERS: PCP Physician Assistant; Visit Provider Orthopaedic Surgery
DX: M25.521 Pain in right elbow (principal); M25.522 Pain in left elbow
CPT/HCPCS: 73080

== ENCOUNTER 2023-02-15 19:12 | Emergency (ER) | payer MEDICARE, SELFPAY ==
--- NOTE | 2023-02-15 19:15 | EXP.UTC ---
Discharge Plan Disposition Patient Disposition: Home, Self-Care Condition: Good Prescriptions Prescriptions: New ciprofloxacin HCl [Cipro] 500 mg tablet 500 mg PO BID Qty: 20 0RF metronidazole 500 mg tablet 500 mg PO BID Qty: 20 0RF promethazine 12.5 mg tablet 12.5 mg PO TID PRN (Reason: allergy symptoms) Qty: 30 0RF Rx Instructions: 3 doses during day; last dose no later than 4 hr before bedtime No Action atorvastatin 80 mg tablet See Rx Instructions .Route .COMPLEX Qty: 90 3RF Rx Instructions: TAKE 1 TABLET BY MOUTH AT BEDTIME FOR CHOLESTEROL lisinopril 10 mg tablet See Rx Instructions .Route .COMPLEX Qty: 90 3RF Rx Instructions: Take 1 tablet by mouth once daily omeprazole 40 mg capsule,delayed release(DR/EC) 40 mg PO DAILY Qty: 90 3RF tamsulosin 0.4 mg capsule See Rx Instructions .ROUTE .COMPLEX Qty: 90 3RF Dose Instruction: TAKE 1 CAPSULE 1 TIME EACH DAY AT BEDTIME FOR PROSTATE Rx Instructions: TAKE 1 CAPSULE 1 TIME EACH DAY AT BEDTIME FOR PROSTATE pregabalin 150 mg capsule 150 mg PO TID Qty: 90 0RF hydrocodone-acetaminophen 10-325 mg tablet 1 tab PO BID Qty: 60 0RF Referrals Follow up/Referrals: Maria Dolores Nagel PA [Primary Care Provider] - See instructions Activity Restrictions/Add. Instructions Additional Instructions/Restrictions: Take all meds as prescribed until gone Try to get liquid IV, pedialyte, etc for hydration Return to ER is severe pain, unable to stay hydrated Clinical Impressions Clinical Impression: Diverticulitis Instructions Patient Instructions: DI for Diverticulitis Discharge ED Provider: Maria Dolores Nagel [facility] [place] HPI General Stated complaint: fever, diarrhea, nausea Time Seen by Provider: 02/15/23 19:58 History of Present Illness Provider Complaint: Acute onset fever, chills late last night. Has had nausea, dry heaves, watery diarrhea today. No blood. History of C diff but this doesn't seem the same. Has had LLQ pain today. Onset (ago): day(s) (1) Location: abdomen Radiation: non-radiation Relieving factors: none Exacerbating factors: none Associated symptoms: loss of appetite and nausea/vomiting Treatments prior to arrival: none Related Data Previous Rx's Medication Instructions Recorded atorvastatin 80 mg tablet See Rx Instructions .Route 09/24/22 .COMPLEX Cholesterol #90 tabs lisinopril 10 mg tablet See Rx Instructions .Route 09/24/22 .COMPLEX High blood pressure #90 tabs omeprazole 40 mg capsule,delayed 40 mg PO DAILY GERD #90 caps 09/24/22 release tamsulosin 0.4 mg capsule See Rx Instructions .Route 09/24/22 .COMPLEX #90 caps hydrocodone 10 mg-acetaminophen 1 tab PO BID pain #60 tabs 01/28/23 325 mg tablet pregabalin 150 mg capsule 150 mg PO TID . #90 caps 01/28/23 ciprofloxacin HCl 500 mg tablet 500 mg PO BID #20 tabs 02/15/23 (Cipro) metronidazole 500 mg tablet 500 mg PO BID #20 tabs 02/15/23 promethazine 12.5 mg tablet 12.5 mg PO TID PRN allergy 02/15/23 symptoms #30 tabs Allergies Allergy/AdvReac Type Severity Reaction Status Date / Time amoxicillin Allergy Mild unknown Verified 12/02/22 14:06 lisinopril AdvReac Mild hypotension Verified 12/02/22 14:06 [facility] Disclaimer: The information contained in this section may have been updated after the patient was seen, as this information can be updated by other users. Medical History C. 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
[2023-02-15 19:30] VITALS: BP 165/78; PULSE 66; RESP 20; TEMP 37.3; O2SAT 97; BMI 25.8
[2023-02-15 20:04] VITALS: BP 165/78; PULSE 66; RESP 20; TEMP 37.3; O2SAT 97
== END 2023-02-15 20:16 | disposition home or self-care (01) ==
PROVIDERS: Emergency Provider Physician Assistant; PCP Physician Assistant
DX: K57.32 Diverticulitis of large intestine without perforation or abscess without bleeding (principal); F17.200 Nicotine dependence, unspecified, uncomplicated; I10 Essential (primary) hypertension; R50.9 Fever, unspecified; R11.0 Nausea; R10.32 Left lower quadrant pain
CPT/HCPCS: 99204; 99212; G0463

== ENCOUNTER 2023-06-19 10:20 | Outpatient (CLI) | payer MEDICARE, SELFPAY ==
[2023-06-19 13:17] LABS: Amphetamine/Metha Screen,Urine Negative ng/ml (<1000); Barbiturates Screen,Urine Negative ng/ml (<200); Benzodiazepines Screen,Urine Negative ng/ml (<200); Cannabinoid Screen,Urine Positive ng/ml (<50); Cocaine Screen,Urine Negative ng/ml (<300); Methadone Screen,Urine Negative ng/ml (<300); Opiate Screen,Urine Positive ng/ml (<300); Phencyclidine Screen,Urine Negative ng/ml (<25)
== END 2023-06-19 23:59 ==
LOC: LAB.DROPOF 06-20 10:21
PROVIDERS: PCP Physician Assistant; Visit Provider Physician Assistant
DX: Z79.899 Other long term (current) drug therapy (principal)
CPT/HCPCS: 80307

== ENCOUNTER 2023-11-03 13:45 | Outpatient (CLI) | payer MEDICARE, SELFPAY ==
[2023-11-03 19:00] LABS: Basophils % 0.5 % (0.1-2.0); Eosinophils # 0.4 K/mm3 (0.0-0.4); Eosinophils % 4.3 % (0.1-12.0); Hematocrit 42.5 % (42.0-52.0); Hemoglobin 13.8 g/dL (14.1-18.0); Lymphocytes # 2.9 K/mm3 (0.7-4.5); Mean Corpuscular HGB Conc 32.6 g/dL (31.8-35.4); Mean Corpuscular Hemoglobin 31.9 pg (27.0-31.2); Mean Corpuscular Volume 98.1 fl (80-94); Mean Platelet Volume 8.8 fl (7.4-10.4); Monocytes # 0.6 K/mm3 (0.1-1.0); Monocytes % 7.4 % (1.7-9.3); Neutrophils # 4.2 K/mm3 (1.8-7.8); Neutrophils % 51.8 % (37.0-80.0); Platelet Count 275 K/mm3 (142-424); Red Blood Count 4.33 M/mm3 (4.60-6.20); Red Cell Distribution Width 13.2 % (11.5-17.5); White Blood Count 8.2 K/mm3 (4.8-10.8)
[2023-11-03 19:18] LABS: Alanine Aminotransferase 16 U/L (12-78); Albumin Level 4.4 g/dl (3.5-5.0); Albumin/Globulin Ratio 1.8 (1.1-1.8); Alkaline Phosphatase 85 U/L (38-126); Anion Gap 16.1 mEq/L (5-15); Aspartate Amino Transferase 32 U/L (17-59); Bilirubin,Total 0.5 mg/dl (0.2-1.3); Blood Urea Nitrogen 13 mg/dl (9-20); Calcium 9.7 mg/dl (8.4-10.2); Carbon Dioxide 23 mmol/L (22.0-30.0); Chloride 103 mmol/L (98-107); Cholesterol 177 mg/dl (140-200); Estimated Glomerular Filt Rate 86 ml/min (>60); GFR (African American) 104 ML/MIN (>60); Globulin 2.5 g/dL (1.3-3.2); Glucose 135 mg/dl (74-100); HDL Cholesterol 44 mg/dl (40-60); Potassium 4.1 mmoL/L (3.5-5.1); Sodium 138 mmol/L (136-145); Total Protein,Serum 6.9 g/dl (6.3-8.2); Triglycerides 314 mg/dl (30-150); VLDL Cholesterol 63 mg/dL (0-40)
[2023-11-03 19:34] LABS: 25-OH Vitamin D, Total 32.8 ng/mL (30-100)
[2023-11-03 20:01] LABS: Prostate Specific Ag Screen 0.8 ng/ml (0.0-4.0); Thyroid Stimulating Hormone 0.95 uIU/mL (0.465-4.68)
[2023-11-04 11:18] LABS: Hemoglobin A1C 6.5 % (4.0-6.0)
== END 2023-11-03 23:59 | disposition home or self-care (01) ==
LOC: LAB.DROPOF 11-04 12:38
PROVIDERS: PCP Physician Assistant; Visit Provider Physician Assistant
DX: E78.5 Hyperlipidemia, unspecified (principal); E55.9 Vitamin D deficiency, unspecified; R53.83 Other fatigue; Z12.5 Encounter for screening for malignant neoplasm of prostate; R73.09 Other abnormal glucose
CPT/HCPCS: 80053; 80061; 82306; 83036; 84443; 85025; G0103

== ENCOUNTER 2023-11-03 14:59 | Outpatient (CLI) | payer MEDICARE, SELFPAY ==
--- NOTE | 2023-11-03 15:01 | CA_ITS ---
FINAL REPORT TECHNIQUE: Ultrasound images of the deep venous system were obtained from the left groin to the calf veins. CLINICAL HISTORY: LLE SWELLING,LT CALF PAIN FINDINGS: The deep venous system is normally compressible. Normal flow is identified. IMPRESSION: No evidence of left lower extremity DVT. Reviewed, Interpreted and Dictated by Christian Acevedo MD Transcribed by Anum Schwarz Authenticated and [facility]
== END 2023-11-03 23:59 | disposition home or self-care (01) ==
PROVIDERS: PCP Physician Assistant; Visit Provider Physician Assistant
DX: M79.89 Other specified soft tissue disorders (principal); M79.605 Pain in left leg; E55.9 Vitamin D deficiency, unspecified; E78.5 Hyperlipidemia, unspecified; R73.09 Other abnormal glucose; R53.83 Other fatigue; Z12.5 Encounter for screening for malignant neoplasm of prostate
CPT/HCPCS: 80053; 80061; 82306; 83036; 84443; 85025; 93971; G0103